=== PATIENT | female | born 1970 | race Caucasian/White ===

== ENCOUNTER 2021-05-30 06:52 | Emergency (ER) | payer OTHER, SELFPAY ==
[2021-05-30 07:08] VITALS: BP 165/100; PULSE 71; RESP 18; TEMP 36.8; O2SAT 97; BMI 27.4
--- NOTE | 2021-05-30 07:12 | ED_ITS ---
HPI - Chest Pain General: Chief Complaint: Extremity Problem,Nontraumatic Stated Complaint: states having heart attack//states same 3.5y ago Time Seen by Provider: 05/30/21 06:54 History of Present Illness: HPI narrative: Ms. Mejia is a 51-year-old lady with complex past medical history who presents the emergency department due to chest discomfort concerning for a similar episode to prior RI approximately 3.5 years ago. She reports pain that woke her up at about 4 AM. She endorses aching and occasionally sharp pain that is primarily in the right anterior chest and radiates down the right arm. She has mild associated nausea but no other typical cardiac chest pain symptoms including specifically denying diaphoresis, lightheadedness, shortness of breath. It does not appear that there is an exertional component. She does not typically have this pain. She has a surgical history of Benson-en-Y procedure and describes buildup of scar tissue which led to perhaps an type II NSTEMI however the exact history of RI is unclear. She reports she had a cath procedure with only 50% stenosis with no intervention performed at that time. She is not on anticoagulation. Overall the intensity of her symptoms was moderate to severe, the course is mildly imp roved. No other changes in health, infectious symptoms, exacerbating, or alleviating factors identified. She does have hypertension, hyperlipidemia, positive family history, and is a tobacco smoker. Review of Systems General: Reports: 10 or more systems reviewed and unremarkable except in HPI and below Narrative: CONSTITUTIONAL: denies fever, fatigue, weakness EYES - denies pain, denies loss of vision EARS - denies ear issues. NOSE - denies congestion or rhinorrhea. THROAT - denies sore throat or difficulty swallowing. CARDIOVASCULAR -see HPI RESPIRATORY - denies shortness of breath and cough GASTROINTESTINAL -see HPI GENITOURINARY - denies dysuria or urinary frequency MUSCULOSKELETAL- denies deformity or pain SKIN - denies rashes or new changed skin lesions NEUROLOGIC - denies focal weakness or sensory changes HEMATOLOGIC/LYMPHATIC - denies easy bruising or lymphadenopathy. Physical Exam Narrative: EXAM NARRATIVE: GENERAL/CONSTITUTIONAL - well-appearing. No acute distress. Eyes - PERRL, no conjunctival injection ENMT - Atraumatic external nose and ears. Moist mucous membranes NECK - supple. trachea midline CARDIOVASCULAR - regular rate and rhythm. Peripheral pulses 2+ and equal RESPIRATORY -clear to auscultation bilaterally. No retractions or accessory muscle use. ABDOMEN/GI - Nontender/Nondistended. No tenderness to percussion or evidence of peritonitis MSK - Extremities without obvious deformity or tenderness to palpation SKIN - Warm, Dry NEURO - alert and appropriately oriented. strength and sensation intact. Moves all extremities equally. PSYCH - Appropriate mood and affect Course ED course: - Patient was seen and evaluated by me at bedside - Patient placed on cardiac monitors, IV access obtained - Initial evaluation notable for no acute distress, nontoxic appearance. Chest pain not reproducible by palpation or deep inspiration on exam - Labs notable for no significant hematologic or metabolic abnormality. Troponin negative. - Imaging notable for no acute abnormality to explain patient's symptoms - Upon serial reexamination after treatment the patient was minimally improved - Based on patient history, evaluation, labs, and imaging as interpreted the most likely cause of the patient's condition is chest pain of unclear etiology -I discussed the results of ED evaluation with the patient. I explained recommendation for admission for inpatient stress testing given clinical history. I did receive the patient's cardiac cath report which showed LAD mid vessel stable appearing lesion that the patient described. I explained heart score methodology and risk stratification including risk of major adverse cardiac events. The patient is moderate risk however I explained that the risk is likely at the highest and if not higher given the patient's known CAD. Patient verbalized understanding and all questions were answered however she declined admission at this time. The patient exhibited logical and goal oriented thought process and is competent to make her own decisions regarding healthcare. - I discussed followup plan, and return precautions. The patient verbalized understanding and felt safe for discharge. Order placed for outpatient follow- up set up from case management. - Patient discharged in satisfactory condition. Vital Signs: Vital signs: Vital Signs Temperature 98.3 F 05/30/21 07:08 Pulse Rate 50 L 05/30/21 11:42 Respiratory Rate 12 05/30/21 11:42 Blood Pressure 153/83 05/30/21 11:42 Pulse Oximetry 93 05/30/21 11:42 MDM - Chest Pain Medical Records: Attestation: I reviewed the patient's medical records. Lab Data: Attestation: I reviewed the patient's lab results. Labs: Lab Results 05/30/21 05/30/21 05/30/21 Range/Units 07:44 07:44 07:44 WBC Cancelled Corrected WBC Cancelled RBC Cancelled Hgb Cancelled Hct Cancelled MCV Cancelled MCH Cancelled MCHC Cancelled RDW Cancelled Plt Count Cancelled MPV Cancelled Gran % Cancelled Neut % (Auto) Cancelled Lymph % (Auto) Cancelled Stanton % (Auto) Cancelled Eos % (Auto) Cancelled Baso % (Auto) Cancelled Neut # (Auto) Cancelled Lymph # (Auto) Cancelled Stanton # (Auto) Cancelled Eos # (Auto) Cancelled Baso # (Auto) Cancelled Absolute Gran (aut o) Cancelled Nucleated RBC % (a uto) Cancelled Nucleated RBCs # Cancelled Sodium Cancelled Potassium Cancelled Chloride Cancelled Carbon Dioxide Cancelled Anion Gap Cancelled BUN Cancelled Creatinine Cancelled GFR Calculation Cancelled Glucose Cancelled Calculated Osmolal ity Cancelled Calcium Cancelled Total Bilirubin Cancelled AST Cancelled ALT Cancelled Alkaline Phosphata se Cancelled Troponin T Baselin e Cancelled Troponin T 120 Min pilot point (0-10) ng/L Delta Troponin T (0-10) ABS# NT-Pro-B Natriuret Pep Cancelled Total Protein Cancelled Albumin Cancelled Globulin Cancelled Lipase Cancelled 05/30/21 05/30/21 05/30/21 Range/Units 08:07 08:07 08:07 WBC 7.7 Corrected WBC RBC 4.76 Hgb 14.3 Hct 43.2 MCV 90.8 MCH 30.0 MCHC 33.1 RDW 14.1 Plt Count 264 MPV 9.0 Gran % Neut % (Auto) 64.5 Lymph % (Auto) 26.6 Stanton % (Auto) 5.2 Eos % (Auto) 2.6 Baso % (Auto) 0.8 Neut # (Auto) 4.94 Lymph # (Auto) 2.0 Stanton # (Auto) 0.4 Eos # (Auto) 0.2 Baso # (Auto) 0.1 Absolute Gran (aut o) Nucleated RBC % (a uto) 0 Nucleated RBCs # 0.0 Sodium 138 Potassium 4.0 Chloride 104 Carbon Dioxide 24 Anion Gap 14.0 BUN 9 Creatinine 0.6 GFR Calculation 105.0 Glucose 89 Calculated Osmolal ity 284 L Calcium 8.5 Total Bilirubin 0.5 AST 19 ALT 19 Alkaline Phosphata se 107 H Troponin T Baselin e 6 Troponin T 120 Min pilot point (0-10) ng/L Delta Troponin T (0-10) ABS# NT-Pro-B Natriuret Pep 185 H Total Protein 6.2 L Albumin 3.7 Globulin 2.5 Lipase 13 05/30/21 Range/Units 10:05 WBC Corrected WBC RBC Hgb Hct MCV MCH MCHC RDW Plt Count MPV Gran % Neut % (Auto) Lymph % (Auto) Stanton % (Auto) Eos % (Auto) Baso % (Auto) Neut # (Auto) Lymph # (Auto) Stanton # (Auto) Eos # (Auto) Baso # (Auto) Absolute Gran (aut o) Nucleated RBC % (a uto) Nucleated RBCs # Sodium Potassium Chloride Carbon Dioxide Anion Gap BUN Creatinine GFR Calculation Glucose Calculated Osmolal ity Calcium Total Bilirubin AST ALT Alkaline Phosphata se Troponin T Baselin e Troponin T 120 Min pilot point 6.00 (0-10) ng/L Delta Troponin T 0 (0-10) ABS# NT-Pro-B Natriuret Pep Total Protein Albumin Globulin Lipase EKG Data^: EKG 1: Attestation: I personally reviewed and interpreted this EKG as follows: EKG interpretation date: 05/30/21 EKG interpretation time: 07:07 Interpretation: Twelve-lead EKG shows a regular sinus rhythm at a rate of 68. ND interval 148, QRS duration 93, QTc 430. Normal axis. Interpretation: Sinus rhythm. Nonspecific ST segment abnormalities. EKG 2: Attestation: I personally reviewed and interpreted this EKG as follows: EKG interpretation date: 05/30/21 EKG interpretation time: 10:15 Interpretation: Twelve-lead EKG shows a regular sinus rhythm at a rate of 47. ND interval 149, QRS duration 89, QTc 441. Normal axis. Interpretation: Sinus rhythm, bradycardia. Nonspecific ST segment abnormalities. Discharge Plan Discharge Patient Disposition: Home Clinical Impression: Chest pain Condition: Stable Prescriptions: No Action atorvastatin 80 mg tablet 80 mg PO DAILY RF: 0 sucralfate 1 gram tablet 1 g PO QID RF: 0 omeprazole 40 mg capsule,delayed release(DR/EC) 40 mg PO BID RF: 0 Aspir-81 81 mg Tablet,Delayed Release (Dr/Ec) 81 mg PO DAILY RF: 0 cyanocobalamin (vitamin B-12) 1,000 mcg/mL solution 1,000 mcg SUBCUT Q14D RF: 0 metoprolol tartrate 25 mg tablet 25 mg PO BID RF: 0 Discharge Orders: Discharge ED (Routine); Ordered 05/30/21 Ordered By: Kosta Zelaya Referrals: Karla Shah, BODY MAN-C [Primary Care Provider] - Discharge Diet: Usual diet Discharge Activity: Resume usual activity Patient Instructions: Chest Pain (ED) Activity Restrictions/Additional Instructions: Thank you for visiting the emergency department. You were seen and evaluated for chest pain. As discussed, based on previous cardiac cath report, this could be cardiac in nature and you need further evaluation. [facility]. Please follow-up with your primary care provider. Please follow-up with cardiology. Please return to the emergency department for anything that you are concerned about and feel needs emergency department evaluation. Coding Level of Care Code ED Value Advisor for César Box
--- NOTE | 2021-05-30 07:21 | XR_ITS ---
WS: [id number] XR chest 1V portable [id number] REASON FOR EXAM: chest pain FINDINGS: The heart and mediastinum are within normal limits. No active pulmonary parenchymal or pleural disease is noted. The bony thorax is intact. XR/XR chest 1V portable [id number] IMPRESSION: No significant abnormality.
[2021-05-30 07:48] VITALS: BP 153/102; PULSE 61; RESP 14; O2SAT 96
[2021-05-30 08:02] VITALS: RESP 18; O2SAT 97
[2021-05-30] MEDS: aspirin 81 mg Chew Tablet 324 MG PO (08:02)
[2021-05-30] MEDS: morphine 4 mg/mL SDV 1 mL IVP (08:02)
[2021-05-30 08:14] LABS: Basophils # 0.1 10^3/uL (0.0-0.1); Basophils % 0.8 %; Eosinophils # 0.2 10^3/uL (0.0-0.8); Eosinophils % 2.6 %; Hematocrit 43.2 % (37.0-47.0); Hemoglobin 14.3 g/dL (11.5-15.3); Lymphocytes % 26.6 %; Mean Corpuscular HGB Conc 33.1 g/dL (30.0-36.0); Mean Corpuscular Volume 90.8 fl (81-99); Monocytes # 0.4 10^3/uL (0.2-0.9); Monocytes % 5.2 %; Neutrophils # 4.94 10^3/uL (1.8-7.7); Neutrophils % 64.5 %; Nucleated Red Blood Cells % 0 %; Platelet Count 264 10^3/cmm (130-400); Red Blood Count 4.76 10^6/uL (4.1-5.3); Red Cell Distribution Width 14.1 % (12.1-15.1); White Blood Count 7.7 10^3/uL (4.0-10.0)
[2021-05-30 08:35] LABS: Troponin(5th) Baseline 6 ng/L (0-10)
[2021-05-30 08:43] LABS: Alanine Aminotransferase 19 U/L (0-33); Albumin Level 3.7 g/dL (3.5-5.2); Alkaline Phosphatase 107 IU/L (35-105); Aspartate Amino Transferase 19 U/L (0-32); Blood Urea Nitrogen 9 mg/dL (6-20); Calcium 8.5 mg/dL (8.5-10.5); Carbon Dioxide 24 mmol/L (22-29); Chloride 104 mmol/L (98-107); Globulin 2.5 g/dL (1.3-4.6); Glucose 89 mg/dL (65-115); Lipase 13 U/L (13-60); NT Pro B Type Natriuretic Pept 185 pg/mL (0-125); Osmolality Calculated 284 mOsm/kg (285-295); Sodium 138 mmol/L (136-145); Total Bilirubin 0.5 mg/dL (0.15-1.2); Total Protein 6.2 g/dL (6.6-8.7)
[2021-05-30 08:57] VITALS: BP 138/81; PULSE 62; RESP 13; O2SAT 94
--- NOTE | 2021-05-30 09:21 | ECG_ITS ---
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 Measurements Intervals Delta Rate: 47 P: 65 HI: 149 QRS: 74 QRSD: 89 T: 52 QT: 495 QTc: 441 Interpretive Statements SINUS BRADYCARDIA No previous ECG available for comparison Electronically Signed On 05-31-2021 19:20:09 CDT by Christine Horn M.D. [email or web address]
[2021-05-30 10:11] VITALS: BP 135/81; PULSE 47; RESP 13; O2SAT 95
[2021-05-30 10:34] LABS: Troponin 5 2HR Delta 0 ABS# (0-10)
[2021-05-30 11:42] VITALS: BP 153/83; PULSE 50; RESP 12; O2SAT 93
--- NOTE | 2021-05-30 14:02 | DCPLANNER ---
Addendum entered by Zohra Gale 10/03/21 16:31: Patient had a follow up appointment scheduled with [facility] - patient did not attend appointment. Original Note: distribution sales manager had message to schedule a follow up appointment for patient with [facility], and a out patient stress test, and echo cardiogram. distribution sales manager faxed signed order to centralized scheduling. After speaking with physician, he stated that he wanted patient to follow up with [facility], and if oakes machine operator feels patient would benefit from an outpatient stress test and echo cardiogram then the oakes machine operator can order the necessary testing. distribution sales manager called [facility], spoke with Palak, gave clinic patients information. A follow up appointment was scheduled for Saturday, June 12, 2021 at 2:[address] Tsang. distribution sales manager called patients , gave him the appointment information.
== END 2021-05-30 11:43 | disposition home or self-care (01) ==
PROVIDERS: Emergency Provider Emergency Medicine; PCP Nurse Practitioner Family
DX: R07.9 Chest pain, unspecified (principal); Z79.82 Long term (current) use of aspirin
CPT/HCPCS: 36415; 71045; 80053; 83690; 83880; 84484; 85025; 93005; 96374; 99284; J2270

== ENCOUNTER 2021-06-18 11:54 | Outpatient (CLI) | payer OTHER, SELFPAY ==
--- NOTE | 2021-06-18 12:09 | MR_ITS ---
WS: [id number] MRI CERVICAL SPINE NONCONTRAST HISTORY: CERVICAL SPONDYLOSIS COMPARISON: None available. Technique: Multiplanar, multisequence noncontrast imaging of the cervical spine. Straightening of the normal cervical lordosis. Slight reversal of curvature centered at C5-6. Signal within the cervical cord is normal. Visualized posterior fossa is unremarkable. Craniocervical junction, C1 and C2 relationship, odontoid process and soft tissues are normal. C2-C3: Normal. C3-C4: Normal. C4-C5: Very mild annular disc bulging. No significant stenosis. C5-C6: Moderate disc space narrowing at C5-6. Diffuse osteophytic ridging with disc and osteophyte en croachment upon the ventral thecal sac. There is a larger disc osteophyte complex in the proximal LEF T foramen causing slightly more mass effect upon the exiting nerve roots. Effacement of ventral CSF b ut no significant cord deformity. Mild central and bilateral foraminal stenosis. C6-C7: Diffuse osteophytic ridging and annular disc bulging. Larger disc osteophyte complex extends i nto the LEFT foramen. There is significant posterior displacement of the nerve roots. Mild central st enosis. Moderate RIGHT foraminal stenosis. Severe LEFT foraminal stenosis due to the disc and osteoph yte disease. C7-T1: Normal. Paraspinal soft tissue are normal. MR/MR cervical spin wo con* [id number] IMPRESSION: 1. Advanced degenerative disc disease at C5-6 and C6-7 with disc bulging and l arge osteophytes. 2. Severe LEFT foraminal stenosis at C6-7 due to large disc osteophyte complex . Mild central and moderate RIGHT foraminal stenosis at C6-7. 3. Mild central and bilateral foraminal stenosis at C5-6 due to disc and osteo phyte disease.
== END 2021-06-18 11:55 | disposition home or self-care (01) ==
PROVIDERS: PCP Nurse Practitioner Family; Visit Provider Registered Nurse
DX: M47.812 Spondylosis without myelopathy or radiculopathy, cervical region (principal); M50.322 Other cervical disc degeneration at C5-C6 level; M50.20 Other cervical disc displacement, unspecified cervical region; M25.78 Osteophyte, vertebrae; M48.02 Spinal stenosis, cervical region
CPT/HCPCS: 72141

== ENCOUNTER → 2021-07-02 14:13 | Outpatient (BNVA) | payer OTHER, SELFPAY | PROVIDERS: PCP Nurse Practitioner Family; Referring Provider Registered Nurse; Visit Provider Physician Assistant | DX: M54.2 Cervicalgia (principal) | CPT/HCPCS: 72050 ==

== ENCOUNTER → 2021-08-22 08:39 | Outpatient (BNVA) | payer OTHER, SELFPAY | PROVIDERS: PCP Nurse Practitioner Family; Referring Provider Physician Assistant; Visit Provider Anesthesiology Pain Medicine | DX: M47.22 Other spondylosis with radiculopathy, cervical region (principal); M50.30 Other cervical disc degeneration, unspecified cervical region; R51.9 Headache, unspecified; M79.604 Pain in right leg | CPT/HCPCS: 99205 ==

== ENCOUNTER 2022-02-01 12:09 | Emergency (ER) | payer OTHER, SELFPAY ==
[2022-02-01 12:16] VITALS: BP 137/84; PULSE 85; RESP 18; TEMP 37.1; O2SAT 98
--- NOTE | 2022-02-01 12:25 | CTR_ITS ---
PROCEDURE INFORMATION: Exam: CT Abdomen And Pelvis With Contrast Exam date and time: 02/01/2022 1:37 PM Age: 51 years old Clinical indication: Abdominal pain; Localized; Right lower quadrant (rlq); Prior surgery; Surgery date: 6+ months; Surgery type: Gb, gastric bypass; Patient HX: C/O rlq abd pain TECHNIQUE: Imaging protocol: Computed tomography of the abdomen and pelvis with contrast. Radiation optimization: All CT scans at this facility use at least one of these dose optimization techniques: automated exposure control; mA and/or kV adjustment per patient size (includes targeted exams where dose is matched to clinical indication); or iterative reconstruction. Contrast material: OMNI 300; Contrast volume: 50 ml; Contrast route: INTRAVENOUS (IV); COMPARISON: CR XR chest 1V portable [id number] 05/30/2021 7:35 AM RADIATION DOSE METRICS: Total DLP (mGy-cm): 1100.26 FINDINGS: Liver: Normal. No mass. Gallbladder and bile ducts: Cholecystectomy. No ductal dilation. Pancreas: Normal. No ductal dilation. Spleen: Normal. No splenomegaly. Adrenal glands: 1.3 cm left adrenal nodule series 2 image 20. Right adrenal gland is unremarkable. Kidneys and ureters: Normal. No hydronephrosis. Stomach and bowel: Sequela of gastric bypass. No obstruction. No mucosal thickening. Appendix: No evidence of appendicitis. Intraperitoneal space: Unremarkable. No free air. No significant fluid collection. Vasculature: Unremarkable. No abdominal aortic aneurysm. Lymph nodes: Unremarkable. No enlarged lymph nodes. Urinary bladder: Unremarkable as visualized. Reproductive: Unremarkable as visualized. Bones/joints: No acute fracture. Grade 1 anterolisthesis of L4 on L5. Soft tissues: Unremarkable. CT/CT abdomen pelvis w con* [id number] IMPRESSION: 1. No acute findings. 2. 1.3 cm left adrenal nodule.
--- NOTE | 2022-02-01 12:26 | ED_ITS ---
HPI - Abdominal Pain General: Chief Complaint: Abdominal Pain Stated Complaint: ABD pain, history of ulcers Time Seen by Provider: 02/01/22 12:21 Source: patient Mode of arrival: ambulatory Limitations: no limitations History of Present Illness: 51-year-old female states that she has been having right lower quadrant abdominal pain since this morning. She states that sharp pain she rates an 8 out of 10. States is worse with movement improved with rest. No vomiting no diarrhea denies any fevers. She did have a gastric bypass and a cholecystectomy 20 years ago she still has her appendix. Associated Symptoms: Denies chills, dysuria and fever(s) Review of Systems Const: Denies: fever(s), chills, body aches or change in appetite Eyes: Denies: blurry vision or eye discomfort ENMT: Denies: throat pain or dental pain Card: Denies: chest pain Resp: Denies: dyspnea GI: Reports: abdominal pain : Denies: dysuria Musc: Denies: neck pain or back pain Skin/Breast: Denies: rash Neuro: Denies: headache(s) Psych: Denies: depression Heron/Lymph: Denies: easy bruising All/Imm: Denies: urticaria PFSH ED PFSH: Family History Denies family history of Anesthesia complication Bleeding disorder Social History Smoking and tobacco status: never smoked Alcohol intake: never Lives independently: Yes Household members: spouse History of recent travel: No Physical Exam Const: COMMON NORMALS: no acute distress, patient oriented x3 and healthy appearing HENMT: COMMON NORMALS: normocephalic and atraumatic HEAD & SCALP: normocephalic and atraumatic Eye: COMMON NORMALS: Equal, round and reactive pupils present and EOMs intact bilaterally PUPIL: Yes Equal, round and reactive pupils present Neck/C-Spine: COMMON NORMALS: full ROM and supple Chest: COMMONS NORMALS: normal inspection of the chest and normal palpation of entire chest wall Resp: COMMON NORMALS: normal respiratory effort, No retractions, No use of accessory muscles and clear to auscultation bilaterally AUSCULTATION: clear to auscultation bilaterally Cardio: COMMON NORMALS: regular rate, regular rhythm and No murmurs present (Cardio) RATE: regular rate RHYTHM: regular rhythm GI: COMMON NORMALS: Normal to inspection, nondistended, normoactive bowel sounds present, Soft to palpation and no masses PALPATION: Yes Soft to palpation and Yes Tenderness to palpation present (GI) Details: RLQ Extremity: COMMON NORMALS: normal to inspection and full ROM Neuro: COMMON NORMALS: patient oriented x3, moves all extremities and no focal motor deficits Psych: COMMON NORMALS: mental status grossly normal, Normal thought process present and cooperative THOUGHT PROCESS: Normal thought process present Skin: COMMON NORMALS: no rashes or lesions noted and no wounds GENERAL SKIN EXAM: no rashes or lesions noted Course Vital Signs: Vital signs: Vital Signs Temperature 98.7 F 02/01/22 12:16 Pulse Rate 85 02/01/22 12:16 Respiratory Rate 18 02/01/22 12:55 Blood Pressure 137/84 02/01/22 12:16 Pulse Oximetry 98 02/01/22 12:16 MDM - Abdominal Pain Medical Decision Making Patient presents with abdominal pain she feels improved here exam at discharge benign blood work and CT scan are normal get her surgery follow-up she is to return if worsening she understands agrees to plan. Lab Data : 02/01/22 13:32 02/01/22 12:57 Labs/Radiology: Radiology Impressions Abdomen/Pelvis CT 02/01/22 12:25 IMPRESSION: 1. No acute findings. 2. 1.3 cm left adrenal nodule. Laboratory Results WBC 8.5 10^3/uL (4.0-10.0) 02/01/22 13:32 Corrected WBC Cancelled 02/01/22 12:57 RBC 4.65 10^6/uL (4.1-5.3) 02/01/22 13:32 Hgb 14.1 g/dL (11.5-15.3) 02/01/22 13:32 Hct 43.2 % (37.0-47.0) 02/01/22 13:32 MCV 92.9 fl (81-99) 02/01/22 13:32 MCH 30.3 pg (28.0-34.0) 02/01/22 13:32 MCHC 32.6 g/dL (30.0-36.0) 02/01/22 13:32 RDW 14.6 % (12.1-15.1) 02/01/22 13:32 Plt Count 258 10^3/cmm (130-400) 02/01/22 13:32 MPV 9.0 fL (7.4-10.4) 02/01/22 13:32 Gran % Cancelled 02/01/22 12:57 Neut % (Auto) 89.7 % 02/01/22 13:32 Lymph % (Auto) 4.3 % 02/01/22 13:32 Sully % (Auto) 4.9 % 02/01/22 13:32 Eos % (Auto) 0.2 % 02/01/22 13:32 Baso % (Auto) 0.4 % 02/01/22 13:32 Neut # (Auto) 7.59 10^3/uL (1.8-7.7) 02/01/22 13:32 Lymph # (Auto) 0.4 10^3/uL (0.8-4.8) L 02/01/22 13:32 Sully # (Auto) 0.4 10^3/uL (0.2-0.9) 02/01/22 13:32 Eos # (Auto) 0.0 10^3/uL (0.0-0.8) 02/01/22 13:32 Baso # (Auto) 0.0 10^3/uL (0.0-0.1) 02/01/22 13:32 Absolute Gran (auto) Cancelled 02/01/22 12:57 Nucleated RBC % (auto) 0 % 02/01/22 13:32 Nucleated RBCs # 0.0 /100WBC 02/01/22 13:32 Sodium 136 mmol/L (136-145) 02/01/22 12:57 Potassium 4.2 mmol/L (3.5-5.1) 02/01/22 12:57 Chloride 102 mmol/L (98-107) 02/01/22 12:57 Carbon Dioxide 23 mmol/L (22-29) 02/01/22 12:57 Anion Gap 15.2 (5-19) 02/01/22 12:57 BUN 9 mg/dL (6-20) 02/01/22 12:57 Creatinine 0.7 mg/dL (0.5-0.9) 02/01/22 12:57 GFR Calculation 87.9 mL/min (90-130) L 02/01/22 12:57 Glucose 100 mg/dL (65-115) 02/01/22 12:57 Calculated Osmolality 281 mOsm/kg (285-295) L 02/01/22 12:57 Calcium 8.5 mg/dL (8.5-10.5) 02/01/22 12:57 Total Bilirubin 0.5 mg/dL (0.15-1.2) 02/01/22 12:57 AST 16 U/L (0-32) 02/01/22 12:57 ALT 12 U/L (0-33) 02/01/22 12:57 Alkaline Phosphatase 99 IU/L (35-105) 02/01/22 12:57 Total Protein 6.6 g/dL (6.6-8.7) 02/01/22 12:57 Albumin 4.2 g/dL (3.5-5.2) 02/01/22 12:57 Globulin 2.4 g/dL (1.3-4.6) 02/01/22 12:57 Lipase 10 U/L (13-60) L 02/01/22 12:57 Urine Color Yellow (Yellow) 02/01/22 13:32 Urine Appearance Clear (CLEAR) 02/01/22 13:32 Urine pH 5 (5-7) 02/01/22 13:32 Ur Specific [place] 1.015 (1.005-1.030) 02/01/22 13:32 Urine Protein Neg (Negative) 02/01/22 13:32 Urine Glucose (UA) Norm (Normal) 02/01/22 13:32 Urine Ketones 1+ (Negative) H 02/01/22 13:32 Urine Blood 2+ (Negative) H 02/01/22 13:32 Urine Nitrate Negative (Negative) 02/01/22 13:32 Urine Bilirubin Neg (Negative) 02/01/22 13:32 Urine Urobilinogen Norm mg/dL (Negative) 02/01/22 13:32 Ur Leukocyte Esterase Negative (Negative) 02/01/22 13:32 Urine RBC 10-15 /hpf (0-2) H 02/01/22 13:32 Urine WBC Rare /hpf (0-5) 02/01/22 13:32 Ur Squamous Epith Cells 0-4 /hpf (0-5) H 02/01/22 13:32 Amorphous Sediment Not Reportable 02/01/22 13:32 Urine Bacteria Trace /hpf (NONE) 02/01/22 13:32 Urine Mucus 1+ /hpf 02/01/22 13:32 Discharge Plan Discharge Patient Disposition: Home Clinical Impression: Abdominal pain Condition: Stable Prescriptions: New ondansetron 4 mg tablet,disintegrating 4 mg PO Q6H PRN (Reason: nausea and vomiting) Qty: 14 0RF No Action cyclobenzaprine 10 mg tablet 10 mg PO TID 0RF atorvastatin 80 mg tablet 80 mg PO DAILY 0RF sucralfate 1 gram tablet 1 g PO QID 0RF omeprazole 40 mg capsule,delayed release(DR/EC) 40 mg PO BID 0RF Aspir-81 81 mg Tablet,Delayed Release (Dr/Ec) 81 mg PO DAILY 0RF cyanocobalamin (vitamin B-12) 1,000 mcg/mL solution 1,000 mcg SUBCUT Q14D 0RF Rx Instructions: TAKE ON THURSDAY metoprolol tartrate 25 mg tablet 25 mg PO BID 0RF Discharge Orders: Discharge ED (Routine); Ordered 02/01/22 Ordered By: Huber Richter Referrals: Duy Baker MD [Physician] - 1-3 days Karla Shah FNP-C [Primary Care Provider] - Discharge Diet: Advance as tolerated Discharge Activity: Resume usual activity Patient Instructions: Abdominal Pain (ED) Coding Level of Care Code ED Senior Litigation Paralegal for Chg Fwd Exam Comprehensive
[2022-02-01] MEDS: sodium chloride 0.9% 1,000 ML 999 ML IV (12:53)
[2022-02-01 12:55] VITALS: RESP 18
[2022-02-01] MEDS: morphine 4 mg/mL SDV 1 mL IVP (12:55)
[2022-02-01] MEDS: ondansetron 2 mg/ML SDV 2 mL 4 MG IVP (12:55)
[2022-02-01 13:26] LABS: Alanine Aminotransferase 12 U/L (0-33); Albumin Level 4.2 g/dL (3.5-5.2); Alkaline Phosphatase 99 IU/L (35-105); Aspartate Amino Transferase 16 U/L (0-32); Blood Urea Nitrogen 9 mg/dL (6-20); Calcium 8.5 mg/dL (8.5-10.5); Carbon Dioxide 23 mmol/L (22-29); Chloride 102 mmol/L (98-107); Globulin 2.4 g/dL (1.3-4.6); Glomerular Filtration Rate 87.9 mL/min (90-130); Glucose 100 mg/dL (65-115); Lipase 10 U/L (13-60); Osmolality Calculated 281 mOsm/kg (285-295); Sodium 136 mmol/L (136-145); Total Bilirubin 0.5 mg/dL (0.15-1.2); Total Protein 6.6 g/dL (6.6-8.7)
[2022-02-01 13:35] LABS: Basophils % 0.4 %; Eosinophils % 0.2 %; Hematocrit 43.2 % (37.0-47.0); Hemoglobin 14.1 g/dL (11.5-15.3); Lymphocytes # 0.4 10^3/uL (0.8-4.8); Lymphocytes % 4.3 %; Mean Corpuscular HGB Conc 32.6 g/dL (30.0-36.0); Mean Corpuscular Hemoglobin 30.3 pg (28.0-34.0); Mean Corpuscular Volume 92.9 fl (81-99); Monocytes # 0.4 10^3/uL (0.2-0.9); Monocytes % 4.9 %; Neutrophils # 7.59 10^3/uL (1.8-7.7); Neutrophils % 89.7 %; Nucleated Red Blood Cells % 0 %; Platelet Count 258 10^3/cmm (130-400); Red Blood Count 4.65 10^6/uL (4.1-5.3); Red Cell Distribution Width 14.6 % (12.1-15.1); White Blood Count 8.5 10^3/uL (4.0-10.0)
[2022-02-01] MEDS: iohexol 300 mg/mL 50 mL Btl IV (13:37)
[2022-02-01 13:42] LABS: Anion Gap 15.2 (5-19); Potassium 4.2 mmol/L (3.5-5.1)
[2022-02-01 14:35] LABS: Urine Appearance Clear (CLEAR); Urine Color Yellow (Yellow)
[2022-02-01 14:36] LABS: Add Urine Microscopic? YES; Bilirubin Urine Neg (Negative); Blood Urine 2+ (Negative); Glucose Urine UA Norm (Normal); Ketones Urine 1+ (Negative); Leukocyte Esterase Urine Negative (Negative); Nitrate Urine Negative (Negative); Protein Urine Neg (Negative); Specific Gravity, Urine 1.015 (1.005-1.030); Urobilinogen Urine Norm (Negative); pH Urine 5 (5-7)
[2022-02-01 14:37] LABS: Add Urine Culture? Yes; Bacteria Urine TRACE /hpf; Mucus Urine 1+ /hpf; Squamous Epithelial Cell Urine 0-4 /hpf (0-5); WBC Urine RARE /hpf (0-5)
[2022-02-01 15:53] VITALS: BP 165/109; PULSE 77; RESP 16; O2SAT 94
--- NOTE | 2022-02-03 15:23 | DCPLANNER ---
Addendum entered by Zohra Gale 05/06/22 14:01: Patient had a follow up appointment scheduled for 02.13.22 with general surgery - patient did attend appointment. Addendum entered by Zohra Gale 02/07/22 16:00: Patient has a follow up appointment scheduled for February at 1:[address] Baker at general surgery. Clinic will call patient with appointment information. Original Note: security services manager had message to schedule a followup appointment for patient with general surgery. security services manager sent patients information to the front office staff at general surgery. Patients information will be printed and reviewed. Clinic will call patient with appointment information.
== END 2022-02-01 15:55 | disposition home or self-care (01) ==
PROVIDERS: Emergency Provider Emergency Medicine; PCP Nurse Practitioner Family
DX: R10.31 Right lower quadrant pain (principal)
CPT/HCPCS: 74177; 80053; 81001; 83690; 85025; 87086; 96361; 96374; 96375; 99284; J2270; J2405; J7030; Q9967

== ENCOUNTER → 2022-02-13 14:07 | Outpatient (BNVA) | payer OTHER, SELFPAY | PROVIDERS: PCP Nurse Practitioner Family; Visit Provider Surgery | DX: R10.9 Unspecified abdominal pain (principal); Z98.84 Bariatric surgery status; Z98.890 Other specified postprocedural states | CPT/HCPCS: 36415; 80053; 80061; 82310; 82607; 82652; 82728; 82746; 83540; 83550; 83735; 83970; 84425; 84443; 84630; 85025 ==

== ENCOUNTER 2022-03-11 10:26 | Outpatient (CLI) | payer OTHER, SELFPAY ==
--- NOTE | 2022-03-11 10:32 | FL_ITS ---
WS: [id number] FL upper GI w air* [id number] REASON FOR EXAM: abdominal pain, history gastric surgery FLUOROSCOPY TIME: 2min [id number] # OF SPOT FILMS: 15 FINDINGS: The upper GI tract was evaluated from the oropharynx into the small bowel of the gastric bypass. Michelle ent was evaluated in the upright and prone TEJADA positions. No significant abnormality was identified in the cervical esophagus. The thoracic esophagus demonstrated normal peristalsis. There was a moderate sliding hiatal hernia wi thout obstruction or significant reflux. The anastomosis at the gastric pouch/small bowel was widely patent with no evidence of edema or ulcer ation. Barium passed preferentially into the distal small bowel rather than filling the blind loop. FL/FL upper GI w air* [id number] IMPRESSION: Small hiatal hernia. No findings for anastomotic ulceration or inflammation.
== END 2022-03-11 10:27 | disposition home or self-care (01) ==
LOC: RAD 10:28
PROVIDERS: PCP Nurse Practitioner Family; Visit Provider Surgery
DX: R10.9 Unspecified abdominal pain (principal); Z98.890 Other specified postprocedural states
CPT/HCPCS: 74246

== ENCOUNTER 2022-04-30 13:02 | Outpatient (CLI) | payer OTHER, SELFPAY ==
--- NOTE | 2022-04-30 13:11 | MM_ITS ---
WS: [id number] BILATERAL 3D TOMOSYNTHESIS DIGITAL SCREENING MAMMOGRAPHY WITH CAD CLINICAL INFORMATION: SCREENING HISTORY: Screening mammogram. No current complaints. COMPARISON: April 11, 2021 TECHNIQUE: Bilateral CC and MLO views. FINDINGS: The breasts are composed of heterogeneous fibroglandular density tissue, which can limit the detectio n of small underlying mass lesions. A few tiny incidental punctate calcifications LEFT breast. No atilio picious mass, asymmetry, calcifications, or architectural distortion. No evidence of malignancy. MM/[place] [id number] IMPRESSION: BI-RADS: 2-Benign FOLLOW UP: 1 Year Follow-up Recommend return to annual screening mammography.
== END 2022-04-30 13:03 | disposition home or self-care (01) ==
LOC: RAD 13:04
PROVIDERS: PCP Registered Nurse; Visit Provider Registered Nurse
DX: Z12.31 Encounter for screening mammogram for malignant neoplasm of breast (principal)
CPT/HCPCS: 77063; 77067

== ENCOUNTER 2022-09-19 15:10 | Emergency (ER) | payer OTHER, SELFPAY ==
[2022-09-19 15:21] VITALS: BP 129/85; PULSE 98; RESP 16; TEMP 36.7; O2SAT 96; BMI 26.1
[2022-09-19 16:28] LABS: Urine Appearance Clear (CLEAR); Urine Color Amber (Yellow); pH Urine 7 (5-7)
[2022-09-19 16:29] LABS: Add Urine Microscopic? YES; Bilirubin Urine Neg (Negative); Blood Urine 2+ (Negative); Glucose Urine UA Norm (Normal); Ketones Urine 1+ (Negative); Leukocyte Esterase Urine 1+ (Negative); Nitrate Urine Negative (Negative); Protein Urine Trace (Negative); Urobilinogen Urine 1 mg/dL (Negative)
[2022-09-19 16:31] LABS: Add Urine Culture? No; Squamous Epithelial Cell Urine 15-25 /hpf (0-5)
[2022-09-19 16:45] VITALS: BP 127/84; PULSE 83; RESP 17; O2SAT 97
[2022-09-19] MEDS: HYDROcodone-acetaminophen 5-325 mg Tablet 1 TAB PO (16:46)
--- NOTE | 2022-09-19 17:08 | ED_ITS ---
Documented by User: SHAYY Hinton 09/19/22 17:19 HPI - Back Pain/Injury General: Chief Complaint: Back Pain/Injury Stated Complaint: urinary pain Time Seen by Provider: 09/19/22 15:49 History of Present Illness: Patient reports that she has right-sided flank pain. 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 She had not done anything to injure her back. She denies any fever, chills, nausea, vomiting. She states that her back hurts a little bit worse with urination but she does not have any burning with urination. She did go see her primary care provider yesterday and she had blood in her urine so t romeo went ahead and gave her Flomax and an antibiotic. She had an outpatient CT done today which was negative for any renal stones. She is having worsening pain. She denies any possibility of . She cannot take NSAIDs because she has had previous gastric bypass. Associated symptoms: Deny abdominal pain, chills, dysuria, fever(s), nausea, urinary urgency or vomiting Review of Systems Const: Denies: fever(s), chills or body aches Card: Denies: chest pain, palpitations or irregular heart rhythm Resp: Denies: dyspnea, productive cough or non-productive cough GI: Denies: abdominal pain, nausea or vomiting : Reports: flank pain; Denies: difficulty voiding, dysuria, urinary frequency, urinary urgency or urinary hesitancy Musc: Reports: back pain PFS ED PFSH: Family History Denies family history of Anesthesia complication Bleeding disorder Social History Smoking and tobacco status: current every day smoker Alcohol intake: never Lives independently: Yes Household members: spouse History of recent travel: No Physical Exam Const: COMMON NORMALS: patient oriented x3 and alert OTHER: Patient is in apparent pain. She has having a difficult time finding any position of comfort and moves continuously in the chair. She is pleasant and cooperative Neck/C-Spine: COMMON NORMALS: no JVD Resp: COMMON NORMALS: normal respiratory effort, No use of accessory muscles and clear to auscultation bilaterally AUSCULTATION: clear to auscultation bilaterally Cardio: COMMON NORMALS: no JVD, regular rate, regular rhythm, S1 normal heart sound present and S2 normal heart sound present RATE: regular rate RHYTHM: regular rhythm HEART SOUNDS: S1 normal heart sound present and S2 normal heart sound present GI: COMMON NORMALS: Normal to inspection, nondistended, normoactive bowel sounds present, Soft to palpation and non-tender PALPATION: Yes Soft to palpation : COMMON NORMALS: Yes no CVA tenderness BLADDER/KIDNEY EXAM: Yes no CVA tenderness Back/Pelvis: COMMON NORMALS: no CVA tenderness Neuro: COMMON NORMALS: patient oriented x3 SENSORIUM/ORIENTATION: Yes alert Course Vital Signs: Vital signs: Vital Signs Temperature 98.1 F 09/19/22 15:21 Pulse Rate 85 09/19/22 17:34 Respiratory Rate 16 09/19/22 17:34 Blood Pressure 141/88 09/19/22 17:34 Pulse Oximetry 96 09/19/22 17:34 Oxygen Delivery Me thod 09/19/22 16:45 MDM - Back Pain/Injury Medical Decision Making Patient positive for 2+ blood in her urine. Positive for leuks. Awaiting results from CT done today. Patient having clinic fax the CT to ER. CT results show no renal stones no acute pathology. Patient has only had 1 dose of antibiotic. I advised her that at this point I do not see any evidence of a kidney stone. I recommend that she take the antibiotic as prescribed. I offered muscle relaxer to help with the musculoskeletal spasming. She declined at this time. I recommend taking the antibiotic and making sure that she is drinking plenty of fluids. Follow-up with her primary care provider in the next 24 to 48 hours if symptoms or not improving return to the ER for new or worsening symptoms. Patient is very agreeable with plan of care denies any further needs at this time Labs Laboratory Results Urine Color Reema (Yellow) 09/19/22 15:59 Urine Appearance Clear (CLEAR) 09/19/22 15:59 Urine pH 7 (5-7) 09/19/22 15:59 Ur Specific [place] 1.010 (1.005-1.030) 09/19/22 15:59 Urine Protein Trace (Negative) 09/19/22 15:59 Urine Glucose (UA) Norm (Normal) 09/19/22 15:59 Urine Ketones 1+ (Negative) H 09/19/22 15:59 Urine Blood 2+ (Negative) H 09/19/22 15:59 Urine Nitrate Negative (Negative) 09/19/22 15:59 Urine Bilirubin Neg (Negative) 09/19/22 15:59 Urine Urobilinogen 1 mg/dL (Negative) H 09/19/22 15:59 Ur Leukocyte Esterase 1+ (Negative) H 09/19/22 15:59 Urine RBC None /hpf (0-2) 09/19/22 15:59 Urine WBC None /hpf (0-5) 09/19/22 15:59 Ur Squamous Epith Cells 15-25 /hpf (0-5) H 09/19/22 15:59 Amorphous Sediment Not Reportable 09/19/22 15:59 Urine Bacteria None /hpf (NONE) 09/19/22 15:59 Discharge Plan Discharge Patient Disposition: Home Clinical Impression: Urinary tract infection, Flank pain Condition: Stable Prescriptions: No Action cyclobenzaprine 10 mg tablet 10 mg PO TID Marijuana PO BEDTIME PRN dexamethasone sodium phosphate 4 mg/mL solution 8 mg Infiltration ONCE Qty: 2 0RF atorvastatin 80 mg tablet 80 mg PO DAILY sucralfate 1 gram tablet 1 g PO QID omeprazole 40 mg capsule,delayed release(DR/EC) 40 mg PO BID Aspir-81 81 mg Tablet,Delayed Release (Dr/Ec) 81 mg PO DAILY cyanocobalamin (vitamin B-12) 1,000 mcg/mL solution 1,000 mcg SUBCUT Q14D Rx Instructions: TAKE ON THURSDAY metoprolol tartrate 25 mg tablet 25 mg PO BID ondansetron 4 mg tablet,disintegrating 4 mg PO Q6H PRN (Reason: nausea and vomiting) Qty: 14 0RF Discharge Orders: Discharge ED (Routine); Ordered 09/19/22 Ordered By: Pat Flores Referrals: Yordan Dotson CPNP [Primary Care Provider] - Discharge Diet: Usual diet Discharge Activity: Increase activity as tolerated Patient Instructions: Flank Pain, Urinary Tract Infection in Women (ED) Activity Restrictions/Additional Instructions: Take antibiotics as already prescribed. Make sure that you are staying well- hydrated. Follow-up with primary care provider in 24 to 48 hours if symptoms are persisting. Return to the ER for new or worsening symptoms. Coding Level of Care Code ED [place] Pumper for Chg Fwd Exam Detailed Documented by User: Andrew Rhodes DO 09/20/22 08:22 HPI - Back Pain/Injury General: Chief Complaint: Back Pain/Injury Stated Complaint: urinary pain Time Seen by Provider: 09/19/22 15:49 PFSH ED PFSH: Family History Denies family history of Anesthesia complication Bleeding disorder Social History Smoking and tobacco status: current every day smoker Alcohol intake: never Lives independently: Yes Household members: spouse History of recent travel: No Course Vital Signs: Vital signs: Vital Signs Temperature 98.1 F 09/19/22 15:21 Pulse Rate 85 09/19/22 17:34 Respiratory Rate 16 09/19/22 17:34 Blood Pressure 141/88 09/19/22 17:34 Pulse Oximetry 96 09/19/22 17:34 Oxygen Delivery Me thod 09/19/22 16:45 MDM - Back Pain/Injury Medical Decision Making Patient positive for 2+ blood in her urine. Positive for leuks. Awaiting results from CT done today. Patient having clinic fax the CT to ER. CT results show no renal stones no acute pathology. Patient has only had 1 dose of a ntibiotic. I advised her that at this point I do not see any evidence of a kidney stone. I recommend that she take the antibiotic as prescribed. I offered muscle relaxer to help with the musculoskeletal spasming. She declined at this time. I recommend taking the antibiotic and making sure that she is drinking plenty of fluids. Follow-up with her primary care provider in the next 24 to 48 hours if symptoms or not improving return to the ER for new or worsening symptoms. Patient is very agreeable with plan of care denies any further needs at this time Chart reviewed and patient discussed with midlevel. Agree with assessment and plan. Labs Laboratory Results Urine Color Reema (Yellow) 09/19/22 15:59 Urine Appearance Clear (CLEAR) 09/19/22 15:59 Urine pH 7 (5-7) 09/19/22 15:59 Ur Specific [place] 1.010 (1.005-1.030) 09/19/22 15:59 Urine Protein Trace (Negative) 09/19/22 15:59 Urine Glucose (UA) Norm (Normal) 09/19/22 15:59 Urine Ketones 1+ (Negative) H 09/19/22 15:59 Urine Blood 2+ (Negative) H 09/19/22 15:59 Urine Nitrate Negative (Negative) 09/19/22 15:59 Urine Bilirubin Neg (Negative) 09/19/22 15:59 Urine Urobilinogen 1 mg/dL (Negative) H 09/19/22 15:59 Ur Leukocyte Esterase 1+ (Negative) H 09/19/22 15:59 Urine RBC None /hpf (0-2) 09/19/22 15:59 Urine WBC None /hpf (0-5) 09/19/22 15:59 Ur Squamous Epith Cells 15-25 /hpf (0-5) H 09/19/22 15:59 Amorphous Sediment Not Reportable 09/19/22 15:59 Urine Bacteria None /hpf (NONE) 09/19/22 15:59 Discharge Plan Discharge Patient Disposition: Home Clinical Impression: Urinary tract infection, Flank pain Condition: Stable Prescriptions: No Action cyclobenzaprine 10 mg tablet 10 mg PO TID Marijuana PO BEDTIME PRN dexamethasone sodium phosphate 4 mg/mL solution 8 mg Infiltration ONCE Qty: 2 0RF atorvastatin 80 mg tablet 80 mg PO DAILY sucralfate 1 gram tablet 1 g PO QID omeprazole 40 mg capsule,delayed release(DR/EC) 40 mg PO BID Aspir-81 81 mg Tablet,Delayed Release (Dr/Ec) 81 mg PO DAILY cyanocobalamin (vitamin B-12) 1,000 mcg/mL solution 1,000 mcg SUBCUT Q14D Rx Instructions: TAKE ON THURSDAY metoprolol tartrate 25 mg tablet 25 mg PO BID ondansetron 4 mg tablet,disintegrating 4 mg PO Q6H PRN (Reason: nausea and vomiting) Qty: 14 0RF Discharge Orders: Discharge ED (Routine); Ordered 09/19/22 Ordered By: Pat Flores Referrals: Yordan Dotson CPNP [Primary Care Provider] - Discharge Diet: Usual diet Discharge Activity: Increase activity as tolerated Patient Instructions: Flank Pain, Urinary Tract Infection in Women (ED) Activity Restrictions/Additional Instructions: Take antibiotics as already prescribed. Make sure that you are staying well- hydrated. Follow-up with primary care provider in 24 to 48 hours if symptoms are persisting. Return to the ER for new or worsening symptoms. Coding Level of Care Code ED [place] Pumper for Donnyg Fwd Exam Detailed
[2022-09-19 17:34] VITALS: BP 141/88; PULSE 85; RESP 16; O2SAT 96
== END 2022-09-19 17:35 | disposition home or self-care (01) ==
PROVIDERS: Emergency Provider Nurse Practitioner Family; PCP Registered Nurse
DX: N39.0 Urinary tract infection, site not specified (principal); Z79.82 Long term (current) use of aspirin; F17.210 Nicotine dependence, cigarettes, uncomplicated
CPT/HCPCS: 81001; 99283

== ENCOUNTER 2022-11-18 17:40 | Emergency (ER) | payer OTHER, SELFPAY ==
[2022-11-18 17:44] VITALS: BP 177/118; PULSE 71; RESP 16; TEMP 36.9; O2SAT 94; BMI 27.4
--- NOTE | 2022-11-18 17:50 | XRR_ITS ---
PROCEDURE INFORMATION: Exam: XR Chest Exam date and time: 11/18/2022 6:05 PM Age: 52 years old Clinical indication: Pain; Chest pressure; Additional info: Chest pain TECHNIQUE: Imaging protocol: Radiologic exam of the chest. Views: 1 view. COMPARISON: CR XR chest 1V portable [id number] 05/30/2021 7:35 AM FINDINGS: Lungs: Patchy airspace opacities in the left lung base. Discoid opacities in the right lung base. Pleural spaces: Unremarkable. No pleural effusion. No pneumothorax. Heart/Mediastinum: Unremarkable. No cardiomegaly. Bones/joints: Unremarkable. XR/XR chest 1V portable [id number] IMPRESSION: Bibasilar opacities are most likely atelectasis. Pneumonia in the left base is not excluded.
--- NOTE | 2022-11-18 17:54 | ECG_ITS ---
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 Measurements Intervals [place] Rate: 52 P: 60 LA: 154 QRS: 70 QRSD: 90 T: 55 QT: 446 QTc: 416 Interpretive Statements SINUS BRADYCARDIA MODERATE T-WAVE ABNORMALITY, CONSIDER ANTERIOR ISCHEMIA [-0.1+ mV T-WAVE IN V3/V4] Compared to ECG 05/30/2021 10:08:23 T-wave abnormality now present Possible ischemia now present Electronically Signed On 11-18-2022 18:19:40 JUNIOR ACCOUNTANT by Jeremy Lauren M.D. [id number]
--- NOTE | 2022-11-18 17:58 | ED_ITS ---
HPI - Chest Pain General: Chief Complaint: Chest Pain Stated Complaint: CHEST PAIN Time Seen by Provider: 11/18/22 17:58 History of Present Illness: 52-year-old female comes in today with complaints of chest discomfort with increased pain with deep inspiration and numbness in the left arm. Patient reports she was getting ready go to work when she noted some numbness in her left arm that then caused increased pain and discomfort in her chest. Patient took aspirin and then was transported to the [facility] by a fellow employee and was given nitroglycerin at the clinic. Patient reported no improvement or changes in pain with nitro. Patient does report that she had a heart attack about 6 years ago but Angiocath only noted some mild blockage medicine 50% and no stent was placed. That was in [facility]. Patient does have spinal stenosis, smokes tobacco, uses marijuana, history of gastric bypass 20 years ago with R&Y procedure, patient uses daily aspirin, atorvastatin, metoprolol. Patient has had an ulcer before in the past secondary to use of ibuprofen and at this time is on omeprazole, Carafate. Patient appears nontoxic. Patient appears in mild to no pain. Associated symptoms: Deny dyspnea, fever(s), nausea or vomiting Review of Systems Const: Denies: fever(s) Eyes: Denies: change in vision ENMT: Denies: throat pain Card: Reports: chest pain Resp: Denies: dyspnea GI: Denies: nausea or vomiting : Denies: flank pain or difficulty voiding Musc: Denies: back pain Skin/Breast: Denies: rash Neuro: Denies: headache(s) [facility] ED PFSH: Medical History Chest pain Hyperlipidemia Hypertension Myocardial infarction Tobacco use Surgical History (Updated 11/18/22 @ 16:13 by DAVID Barton) History of cholecystectomy History of Benson-en-Y gastric bypass Hx of colonoscopy 4 yrs ago Hx of external ear surgery tubes Hx of knee surgery bilateral 2 on both knees Hx of tonsillectomy Hx of tubal ligation Family History Denies family history of Anesthesia complication Bleeding disorder Social History (Updated 10/30/22 @ 09:37 by Neida Rush LPN) Smoking and tobacco status: current every day smoker cigarettes Packs smoked per day: 0.5 Alcohol intake: current Alcohol intake frequency: 3 or more drinks per day Alcohol type: hard liquor Lives independently: Yes Household members: spouse Physical Exam Const: COMMON NORMALS: alert HENMT: COMMON NORMALS: normocephalic HEAD & SCALP: normocephalic Eye: COMMON NORMALS: Equal, round and reactive pupils present PUPIL: Yes Equal, round and reactive pupils present Neck/C-Spine: COMMON NORMALS: full ROM Chest: COMMONS NORMALS: normal palpation of entire chest wall Resp: COMMON NORMALS: normal respiratory effort AUSCULTATION: wheezes Cardio: COMMON NORMALS: regular rate, regular rhythm, S1 normal heart sound present and S2 normal heart sound present RATE: regular rate RHYTHM: regular rhythm HEART SOUNDS: S1 normal heart sound present and S2 normal heart sound present GI: COMMON NORMALS: Soft to palpation AUSCULTATION: Yes normoactive bowel sounds PALPATION: Yes Soft to palpation and No Tenderness to palpation present (GI) : COMMON NORMALS: Yes no CVA tenderness BLADDER/KIDNEY EXAM: Yes no CVA tenderness Back/Pelvis: COMMON NORMALS: no CVA tenderness Extremity: COMMON NORMALS: no pedal edema Neuro: SENSORIUM/ORIENTATION: Yes alert Psych: COMMON NORMALS: cooperative Skin: COMMON NORMALS: turgor normal GENERAL SKIN EXAM: turgor normal Course Vital Signs: Vital signs: Vital Signs Temperature 98.4 F 11/18/22 17:44 Pulse Rate 71 11/18/22 17:44 Respiratory Rate 16 11/18/22 17:44 Blood Pressure 177/118 11/18/22 17:44 Pulse Oximetry 94 11/18/22 17:44 Oxygen Delivery Me thod 11/18/22 17:44 MDM - Chest Pain Medical Decision Making 52-year-old female comes in today for complaints of chest discomfort. Patient reported some tingling in her left hand but started as she got to work. Patient then started having increased chest discomfort to where she went to the clinic and [facility] and then was transported to the emergency department. Patient had nitro and aspirin in route to the ER. On exam lungs are wheezing throughout. Good perfusion of the skin. No edema is noted in the extremities. Abdomen soft nontender. No chest discomfort is noted with palpation. Differential diagnosis includes but not limited to pleurisy, pneumonia, ACS. CBC and CMP were unremarkable. Patient's troponin was less than 6 at a greater than 2-hour [place]in. BNP was slightly elevated at 240. Chest x-ray noted bibasilar opacities suggestive of atelectasis versus early infiltrate. Pneumonia was suggested on the left base. Due to patient's complaint of deep inspiratory discomfort in the chest with increased on the left than the right. Patient most likely has pneumonia we will go ahead and treat with antibiotics and steroid. I do not believe patient has ACS at this time. Patient should follow-up with primary care for further instruction return to ED for new concerns. Patient reported understanding and agreed to plan. Lab Data 11/18/22 18:03 11/18/22 18:03 Radiology Impressions Chest X-Ray 11/18/22 17:50 IMPRESSION: Bibasilar opacities are most likely atelectasis. Pneumonia in the left base is not excluded. Laboratory Results WBC 7.6 10^3/uL (4.0-10.0) 11/18/22 18:03 RBC 5.09 10^6/uL (4.1-5.3) 11/18/22 18:03 Hgb 15.0 g/dL (11.5-15.3) 11/18/22 18:03 Hct 46.4 % (37.0-47.0) 11/18/22 18:03 MCV 91.2 fl (81-99) 11/18/22 18:03 MCH 29.5 pg (28.0-34.0) 11/18/22 18:03 MCHC 32.3 g/dL (30.0-36.0) 11/18/22 18:03 RDW 14.6 % (12.1-15.1) 11/18/22 18:03 Plt Count 361 10^3/cmm (130-400) 11/18/22 18:03 MPV 9.4 fL (7.4-10.4) 11/18/22 18:03 Neut % (Auto) 58.0 % 11/18/22 18:03 Lymph % (Auto) 34.4 % 11/18/22 18:03 [place] % (Auto) 4.6 % 11/18/22 18:03 Eos % (Auto) 2.2 % 11/18/22 18:03 Baso % (Auto) 0.5 % 11/18/22 18:03 Neut # (Auto) 4.40 10^3/uL (1.8-7.7) 11/18/22 18:03 Lymph # (Auto) 2.6 10^3/uL (0.8-4.8) 11/18/22 18:03 [place] # (Auto) 0.4 10^3/uL (0.2-0.9) 11/18/22 18:03 Eos # (Auto) 0.2 10^3/uL (0.0-0.8) 11/18/22 18:03 Baso # (Auto) 0.0 10^3/uL (0.0-0.1) 11/18/22 18:03 Nucleated RBC % (auto) 0 % 11/18/22 18:03 Nucleated RBCs # 0.0 /100WBC 11/18/22 18:03 Sodium 142 mmol/L (136-145) 11/18/22 18:03 Potassium 3.9 mmol/L (3.5-5.1) 11/18/22 18:03 Chloride 102 mmol/L (98-107) 11/18/22 18:03 Carbon Dioxide 26 mmol/L (22-29) 11/18/22 18:03 Anion Gap 17.9 (5-19) 11/18/22 18:03 BUN 13 mg/dL (6-20) 11/18/22 18:03 Creatinine 0.6 mg/dL (0.5-0.9) 11/18/22 18:03 GFR Calculation 104.6 mL/min (90-130) 11/18/22 18:03 Glucose 94 mg/dL (65-115) 11/18/22 18:03 Calculated Osmolality 294 mOsm/kg (285-295) 11/18/22 18:03 Calcium 9.9 mg/dL (8.5-10.5) 11/18/22 18:03 Total Bilirubin 0.4 mg/dL (0.15-1.2) 11/18/22 18:03 AST 26 U/L (0-32) 11/18/22 18:03 ALT 23 U/L (0-33) 11/18/22 18:03 Alkaline Phosphatase 122 U/L (35-105) H 11/18/22 18:03 Troponin T Baseline 6 ng/L (0-10) 11/18/22 18:03 NT-Pro-B Natriuret Pep 223 pg/mL (0-125) H 11/18/22 18:03 Total Protein 7.7 g/dL (6.6-8.7) 11/18/22 18:03 Albumin 4.5 g/dL (3.5-5.2) 11/18/22 18:03 Globulin 3.2 g/dL (1.3-4.6) 11/18/22 18:03 Lipase 18 U/L (13-60) 11/18/22 18:03 EKG Data EKG 1: EKG interpretation date: 11/18/22 EKG interpretation time: 18:08 Prior EKG tracings: available for review Interpretation: EKG notes sinus rhythm regular rate at [address] elevation or ectopy is noted. Possible T wave abnormality is noted when compared to prior exam of May 30, 2021. Discharge Plan Discharge Patient Disposition: Home Clinical Impression: Pneumonia Qualifiers: Pneumonia type: due to unspecified organism Laterality: left Lung location: lower lobe of lung Qualified Code(s): J18.9 - Pneumonia, unspecified organism Condition: Stable Prescriptions: New azithromycin 250 mg tablet See Rx Instructions .ROUTE .COMPLEX Qty: 6 0RF Rx Instructions: For 250 mg dose pack: take 500 mg today (day 1), then 250 mg for 4 days (days 2-5) tramadol 50 mg tablet 50 mg PO TID PRN (Reason: pain (scale score 7-10)) Qty: 7 0RF No Action cyclobenzaprine 10 mg tablet 10 mg PO TID Marijuana PO BEDTIME PRN dexamethasone sodium phosphate 4 mg/mL solution 8 mg Infiltration ONCE Qty: 2 0RF gabapentin 300 mg capsule 300 mg PO TID Qty: 90 0RF atorvastatin 80 mg tablet 80 mg PO DAILY sucralfate 1 gram tablet 1 g PO QID omeprazole 40 mg capsule,delayed release(DR/EC) 40 mg PO BID Aspir-81 81 mg Tablet,Delayed Release (Dr/Ec) 81 mg PO DAILY cyanocobalamin (vitamin B-12) 1,000 mcg/mL solution 1,000 mcg SUBCUT Q14D Rx Instructions: TAKE ON THURSDAY metoprolol tartrate 25 mg tablet 25 mg PO BID ondansetron 4 mg tablet,disintegrating 4 mg PO Q6H PRN (Reason: nausea and vomiting) Qty: 14 0RF Discharge Orders: Discharge ED (Routine); Ordered 11/18/22 Ordered By: hSyam Aldrich Referrals: Arturo Meehan FNP [Primary Care Provider] - Discharge Diet: Usual diet Discharge Activity: Increase activity as tolerated Patient Instructions: Pneumonia (ED) Activity Restrictions/Additional Instructions: Home and rest. Drink plenty of fluids. Take antibiotics as directed. Follow- up with primary care in 2 to 3 days for recheck. Have a repeat x-ray done in 2 weeks to ensure clearance of pneumonia. Return to ER for new concerns such as increasing shortness of breath, inability to hold fluids down, or worsening chest discomfort. Coding Level of Care Code ED Fire Equipment Operator for César Box
--- NOTE | 2022-11-18 18:10 | PC.NURSE ---
PT PLACED ON CONTINUOUS SPO2, NIBP, AND CM.
[2022-11-18 18:15] LABS: Basophils % 0.5 %; Eosinophils # 0.2 10^3/uL (0.0-0.8); Eosinophils % 2.2 %; Hematocrit 46.4 % (37.0-47.0); Lymphocytes # 2.6 10^3/uL (0.8-4.8); Lymphocytes % 34.4 %; Mean Corpuscular HGB Conc 32.3 g/dL (30.0-36.0); Mean Corpuscular Hemoglobin 29.5 pg (28.0-34.0); Mean Corpuscular Volume 91.2 fl (81-99); Mean Platelet Volume 9.4 fL (7.4-10.4); Monocytes # 0.4 10^3/uL (0.2-0.9); Monocytes % 4.6 %; Nucleated Red Blood Cells % 0 %; Platelet Count 361 10^3/cmm (130-400); Red Blood Count 5.09 10^6/uL (4.1-5.3); Red Cell Distribution Width 14.6 % (12.1-15.1); White Blood Count 7.6 10^3/uL (4.0-10.0)
[2022-11-18] MEDS: nitroglycerin 1 gm/inch oint Pkt 1 INCH TOPICAL (18:19)
[2022-11-18 18:47] LABS: Troponin(5th) Baseline 6 ng/L (0-10)
[2022-11-18 18:57] LABS: Alanine Aminotransferase 23 U/L (0-33); Albumin Level 4.5 g/dL (3.5-5.2); Alkaline Phosphatase 122 U/L (35-105); Anion Gap 17.9 (5-19); Aspartate Amino Transferase 26 U/L (0-32); Blood Urea Nitrogen 13 mg/dL (6-20); Calcium 9.9 mg/dL (8.5-10.5); Carbon Dioxide 26 mmol/L (22-29); Chloride 102 mmol/L (98-107); Creatinine Clr Calc Pharmacy 101.9599; Globulin 3.2 g/dL (1.3-4.6); Glomerular Filtration Rate 104.6 mL/min (90-130); Glucose 94 mg/dL (65-115); Lipase 18 U/L (13-60); NT Pro B Type Natriuretic Pept 223 pg/mL (0-125); Osmolality Calculated 294 mOsm/kg (285-295); Potassium 3.9 mmol/L (3.5-5.1); Sodium 142 mmol/L (136-145); Total Bilirubin 0.4 mg/dL (0.15-1.2); Total Protein 7.7 g/dL (6.6-8.7)
[2022-11-18] MEDS: cefTRIAXone 1,000 MG in sodium chloride 0.9% (plus) 50 ML 100 MG IV (19:40)
[2022-11-18] MEDS: TRAMadol 50 mg Tablet PO (19:40)
[2022-11-18] MEDS: dexamethasone 10 mg/mL INJ IVP (19:41)
[2022-11-18 20:48] VITALS: BP 110/64; PULSE 88; RESP 15
== END 2022-11-18 20:50 | disposition home or self-care (01) ==
PROVIDERS: Emergency Provider Nurse Practitioner Family; PCP Nurse Practitioner Family
DX: J18.9 Pneumonia, unspecified organism (principal); Z79.82 Long term (current) use of aspirin; F17.210 Nicotine dependence, cigarettes, uncomplicated; E78.5 Hyperlipidemia, unspecified; I10 Essential (primary) hypertension
CPT/HCPCS: 71045; 80053; 83690; 83880; 84484; 85025; 93005; 96365; 96375; 99285; J0696; J1100

== ENCOUNTER → 2023-06-04 11:03 | Outpatient (BNVA) | payer OTHER, SELFPAY | PROVIDERS: PCP Nurse Practitioner Family; Referring Provider Nurse Practitioner Family; Visit Provider Internal Medicine Cardiovascular Disease | DX: R07.9 Chest pain, unspecified (principal); I25.2 Old myocardial infarction; I25.10 Atherosclerotic heart disease of native coronary artery without angina pectoris; I10 Essential (primary) hypertension; E78.5 Hyperlipidemia, unspecified; Z98.84 Bariatric surgery status | CPT/HCPCS: 93005 ==

== ENCOUNTER 2023-07-14 12:53 | Outpatient (CLI) | payer OTHER, SELFPAY ==
--- NOTE | 2023-07-14 | ECG_ITS ---
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 Interpretive Statements NAME OF STUDY: TREADMILL STRESS ECHOCARDIOGRAM INDICATION: [ASHD, ] EXERCISE DATA: The patient was exercised by Cuco protocol. Baseline heart rate was 61 beats per minute. Baseline blood pressure was 124/78 millimeters of mercury. Target heart rate was 141 beats per minute. Maximum heart rate achieved was 142, which was 100% of the target heart rate. Maximum blood pressure was 169/77 millimeters of mercury. Total exercise time was 9 minutes and 16 seconds. Maximum METs achieved was 10.3. ELECTROCARDIOGRAM: BASELINE: Showed sinus rhythm, normal axis, no significant ST-T changes at the baseline noted. [] EXERCISE: At the peak exercise level, [] No significant ST-T changes suggestive of ischemia noted. [] RECOVERY: During the recovery period, heart rate dropped appropriately. No significant ST-T changes in the recovery suggestive of ischemia noted. [] CONCLUSION: 1. Exercise capacity is good 2. Heart rate response was appropriate. 3. Blood pressure response was appropriate 4. Symptoms not suggestive of ischemia. 5. Electrocardiogram portion of the stress test was not suggestive of ischemia. However EKG recorded maximum heart rate of 138bpm which is 3 beats less than target heart rate. This reduces sensitivity of stress test slightly but as patient did reach target heart rate (not recorded on ekg), overall EKG portion is not suggestive of ischemia. 6. Echocardiogram portion of stress test will be reported separately Electronically Signed On 07-18-2023 11:33:25 CDT by Nico Izquierdo M.D. [id number]
--- NOTE | 2023-07-14 12:58 | USCV_ITS ---
Lia Mejia Age: 53 Gender: F : 1970 Exam Date: 07/14/2023 13:42 Ordering Phys: Chauncey Tsang MD ([email or web address]) Technologist: Exam Location: [facility] [place] Indication: ASHD Rhythm: Sinus Patient History: HTN/DLD/SMOKER/ [place], FAMILY H/O CAD Cardiac Medications: BETA MARTHA, ASA, STATIN Medications in past 24 hours: NONE Contrast: Stress Results Protocol: Cuco Total dose(mL): Exercise Duration (min:sec): 9:16 METS: 10.3 Resting HR: 70 Resting BP: 124 / 78 Peak HR: 142 Peak BP: / Max Predicted HR: 166 86 % Max Predicted HR Target HR: 141 Double Product: Stress Summary: SOB WHILE ON THE TREADMILL. NO CHEST PAIN BP Response: NORMAL Reason for Termination: TARGET HR REACHED Cardiac Symptoms: SOB THAT RESOLVED QUICKLY DURING RECOVERY ECG Analysis Resting ECG: Normal sinus rhythm with no significant ST T wave changes Stress ECG: Sinus tachycardia. No significant ST T wave changes Arrhythmia: None MEASUREMENTS (Male/Female) Normal Values FINDINGS Baseline echocardiogram showed normal LV systolic function with EF of 55-60%. No significant regional wall motion abnormalities. On stress images, no significant regional wall motion abnormalities seen. However images obtained at significantly lower than target heart rate. This reduces sensitivity of the test. Echo portion of stress test is indeterminate. CONCLUSIONS 1. Echocardiogram portion of stress test is indeterminate as images were obtained at significantly lower than target heart rate. Maximum heart rate at which images were obtained was 115 bpm (target 141 bpm) and at that heart rate no regional wall motion abnormalities seen. However can not rule out ischemia with these findings. 2. Baseline echocardiogram showed normal LV systolic function 3. EKG portion of the stress test not showing ischemic changes but has lower sensitivity as EKG obtained at 3 beats below target heart rate. Nico Izquierdo MD (Electronically Signed) Final Date: 18 July 2023 11:42 S
[2023-07-14 13:00] VITALS: BMI 27.6
[2023-07-14 14:02] VITALS: BP 137/66; PULSE 79
== END 2023-07-14 12:54 | disposition home or self-care (01) ==
PROVIDERS: PCP Nurse Practitioner Family; Visit Provider Internal Medicine Cardiovascular Disease
DX: I25.10 Atherosclerotic heart disease of native coronary artery without angina pectoris (principal)
CPT/HCPCS: 93017; 93350

== ENCOUNTER 2024-03-16 21:06 | Observation (INO) | payer OTHER, SELFPAY ==
[2024-03-16 21:11] VITALS: BP 115/77; PULSE 100; RESP 18; TEMP 36.6; O2SAT 95; BMI 29.2
[2024-03-16 22:16] LABS: Basophils # 0.1 10^3/uL (0.0-0.1); Basophils % 0.4 %; Eosinophils % 0.2 %; Hematocrit 46.8 % (36-47); Lymphocytes # 1.2 10^3/uL (0.8-4.8); Lymphocytes % 9.7 %; Mean Corpuscular HGB Conc 32.1 g/dL (30-55); Mean Corpuscular Hemoglobin 28.5 pg (27-33); Mean Platelet Volume 8.8 fL (7.4-10.4); Monocytes # 0.4 10^3/uL (0.2-0.9); Monocytes % 2.9 %; Neutrophils # 10.96 10^3/uL (1.8-7.7); Neutrophils % 86.5 %; Nucleated Red Blood Cells % 0 %; Platelet Count 339 10^3/cmm (157-399); Red Blood Count 5.26 10^6/uL (3.85-5.65); Red Cell Distribution Width 15.2 % (12.1-15.1); White Blood Count 12.67 10^3/uL (3.29-11.43)
[2024-03-16] MEDS: sodium chloride 0.9% 1,000 ML 999 ML IV ×2 (22:22→23:09)
[2024-03-16 22:26] LABS: Alanine Aminotransferase 13 U/L (0-33); Albumin Level 4.1 g/dL (3.5-5.2); Alkaline Phosphatase 144 U/L (35-105); Anion Gap 17.8 (5-19); Aspartate Amino Transferase 24 U/L (0-32); Blood Urea Nitrogen 23 mg/dL (6-20); Carbon Dioxide 22 mmol/L (22-29); Chloride 103 mmol/L (98-107); Globulin 3.8 g/dL (1.3-4.6); Glomerular Filtration Rate 42.7 mL/min (90-130); Glucose 109 mg/dL (65-115); Lipase 13 U/L (13-60); Magnesium 1.9 mg/dL (1.7-2.3); Osmolality Calculated 292 mOsm/kg (285-295); Potassium 3.8 mmol/L (3.5-5.1); Sodium 139 mmol/L (136-145); Total Bilirubin 0.4 mg/dL (0.15-1.2); Total Protein 7.9 g/dL (6.6-8.7)
[2024-03-16 22:29] LABS: Creatinine Clr Calc Pharmacy 47.9345
--- NOTE | 2024-03-16 23:00 | PC.NURSE ---
Pt states her cramping is better after IVFs, states she does not have to urinate. Dr Reinoso aware, 2nd bag of IVFs ordered.
--- NOTE | 2024-03-16 23:01 | ED_ITS ---
HPI - Abdominal Pain 2 General: Chief Complaint: Abdominal Pain Stated Complaint: abd pain history of perforated ulcer Time Seen by Provider: 03/16/24 21:36 History of Present Illness: Patient presents to the ER with lower quadrant abdominal pain and cramping. This is been going on ever since Thursday. Been getting worse this afternoon. Patient does have a history of gastric bypass and perforated ulcer this was about 15 years ago. Patient has been on Carafate and is omeprazole consistently. Patient has had diarrhea. Patient states that everything she eats goes right through her immediately patient denies any nausea vomiting. Patient's curious if she has another ulcer. Patient still urinates multiple times a day. Review of Systems 2 General: Reports: 10 or more systems reviewed and unremarkable except in HPI and below PFSH ED 2 PFSH: Medical History Tobacco use Hyperlipidemia Hypertension Myocardial infarction Chest pain Surgical History Hx of colonoscopy 4 yrs ago History of cholecystectomy Hx of external ear surgery tubes Hx of tonsillectomy Hx of tubal ligation Hx of knee surgery bilateral 2 on both knees History of Benson-en-Y gastric bypass Family History Denies family history of Anesthesia complication Bleeding disorder Social History Smoking and tobacco/nicotine status: current every day tobacco/nicotine user cigarettes Packs smoked per day: 0.5 Alcohol intake: current Alcohol intake frequency: 3 or more drinks per day Alcohol type: hard liquor Substance/Drug Use: former Lives independently: Yes Household members: spouse Physical Exam 2 Const: COMMON NORMALS: no acute distress, average body habitus, patient oriented x3, no limitations, healthy appearing, alert and well nourished HENMT: COMMON NORMALS: normocephalic, atraumatic, hearing grossly normal bilaterally, external ears normal, Normal external nose present and moist oral mucous membranes HEAD & SCALP: normocephalic and atraumatic NOSE: Normal external nose present EXTERNAL EAR: Yes external ears normal Neck/C-Spine: COMMON NORMALS: no JVD Chest: COMMONS NORMALS: normal inspection of the chest and normal palpation of entire chest wall Resp: COMMON NORMALS: normal respiratory effort, No retractions, No use of accessory muscles and clear to auscultation bilaterally AUSCULTATION: clear to auscultation bilaterally Cardio: COMMON NORMALS: no JVD, regular rate, regular rhythm, S1 normal heart sound present, S2 normal heart sound present, No gallops present (Cardio), No clicks present (Cardio), No murmurs present (Cardio) and No rub (Cardio) R ATE: regular rate RHYTHM: regular rhythm HEART SOUNDS: S1 normal heart sound present and S2 normal heart sound present GI: COMMON NORMALS: Normal to inspection, nondistended, normoactive bowel sounds present, Soft to palpation, No hepatosplenomegaly present and no masses; negative for non-tender (Minimal tenderness to palpation over suprapubic region) PALPATION: Yes Soft to palpation and Yes No hepatosplenomegaly present Neuro: COMMON NORMALS: patient oriented x3 SENSORIUM/ORIENTATION: Yes alert Course 2 Vital Signs: Vital signs: Vital Signs Temperature 97.9 F 03/16/24 21:11 Pulse Rate 92 03/17/24 00:33 Respiratory Rate 16 03/17/24 00:33 Blood Pressure 160/85 03/17/24 00:33 Pulse Oximetry 91 03/17/24 00:33 Oxygen Delivery Me thod Room Air 03/17/24 00:07 MDM - Abdominal Pain Medical Decision Making Lab work was obtained, CT scan of the abdomen pelvis was obtained, this showed possible small bowel intussusception to the level of the gastric bypass anastomosis. Lab work was essentially otherwise unremarkable except for mildly elevated white count of 12 and BUN/creatinine slightly elevated at 23/1.3, Dr. Crawford was consulted who says usually the small bowel intussusception is transitory however due to the location next to the anastomosis for the gastric bypass this may change the prognosis. He suggest we transfer to a facility where bariatric surgeon is present in case this continues to worsen and may need surgery on the anastomosis itself. Discussed these results and the surgeons opinion about her name transferred with the patient. Patient suggest we try transferring [place] [facility] as [place] is been seen [place] there in the distant past for a perforated ulcer or if they will have any beds she would like to go to [place] where she has seen a bariatric specialist up there but cannot remember the name. Dr. Toy bariatric surgeon at [facility] was consulted and he said since it does not appear to be an obstruction and with no nausea vomiting he would recommend treating her for the colitis and our general surgeon should be able to do that, if she appears to become obstructed he recommends an oral contrast CT to delineate that for sure and we would transfer to their ER as needed. was notified of this finding and he said he will follow from a surgical standpoint would like medical management of the patient from the hospitalist. Dr. Terry was consulted who agreed for placing the patient in [facility] and consulting general surgery. Differential Diagnosis Likely abdominal pain Medical Records I reviewed the patient's medical records. Lab Data I reviewed the patient's lab results. 03/16/24 21:45 03/16/24 21:45 Labs/Radiology: Radiology Impressions Abdomen/Pelvis CT 03/17/24 01:50 IMPRESSION: 1. Colitis. 2. Postoperative changes status post gastric bypass procedure. There is a small bowel small bowel intussusception at the level of the small bowel suture line. 3. Please see above comments for additional details. 4. Small left adrenal nodule. No follow-up is necessary. (Reference: Shantel) References: Shantel CUELLO, et al. Management of Incidental Adrenal Masses: A White Paper of the ACR Incidental Findings Committee. J Am Harvey Radiol. 2017;14(8):3139-9325. ADDENDUM: 03/17/24 0432 COMMENT: THIS REPORT CONTAINS FINDINGS THAT MAY BE CRITICAL TO PATIENT CARE. The exam findings were verbally communicated by me to Checo Reinoso via telephone conference at 4:31 AM CDT on 03/17/2024. The findings were acknowledged and understood. Laboratory Results WBC 12.67 10^3/uL (3.29-11.43) H 03/16/24 21:45 RBC 5.26 10^6/uL (3.85-5.65) 03/16/24 21:45 Hgb 15.00 g/dL (11.27-16.99) 03/16/24 21:45 Hct 46.8 % (36-47) 03/16/24 21:45 MCV 89.0 fl (85-98) 03/16/24 21:45 MCH 28.5 pg (27-33) 03/16/24 21:45 MCHC 32.1 g/dL (30-55) 03/16/24 21:45 RDW 15.2 % (12.1-15.1) H 03/16/24 21:45 Plt Count 339 10^3/cmm (157-399) 03/16/24 21:45 MPV 8.8 fL (7.4-10.4) 03/16/24 21:45 Neut % (Auto) 86.5 % 03/16/24 21:45 Lymph % (Auto) 9.7 % 03/16/24 21:45 [place] % (Auto) 2.9 % 03/16/24 21:45 Eos % (Auto) 0.2 % 03/16/24 21:45 Baso % (Auto) 0.4 % 03/16/24 21:45 Neut # (Auto) 10.96 10^3/uL (1.8-7.7) H 03/16/24 21:45 Lymph # (Auto) 1.2 10^3/uL (0.8-4.8) 03/16/24 21:45 [place] # (Auto) 0.4 10^3/uL (0.2-0.9) 03/16/24 21:45 Eos # (Auto) 0.0 10^3/uL (0.0-0.8) 03/16/24 21:45 Baso # (Auto) 0.1 10^3/uL (0.0-0.1) 03/16/24 21:45 Nucleated RBC % (auto) 0 % 03/16/24 21:45 Nucleated RBCs # 0.0 /100WBC 03/16/24 21:45 Sodium 139 mmol/L (136-145) 03/16/24 21:45 Potassium 3.8 mmol/L (3.5-5.1) 03/16/24 21:45 Chloride 103 mmol/L (98-107) 03/16/24 21:45 Carbon Dioxide 22 mmol/L (22-29) 03/16/24 21:45 Anion Gap 17.8 (5-19) 03/16/24 21:45 BUN 23 mg/dL (6-20) H 03/16/24 21:45 Creatinine 1.3 mg/dL (0.5-0.9) H 03/16/24 21:45 GFR Calculation 42.7 mL/min (90-130) L 03/16/24 21:45 Glucose 109 mg/dL (65-115) 03/16/24 21:45 Calculated Osmolality 292 mOsm/kg (285-295) 03/16/24 21:45 Calcium 9.0 mg/dL (8.5-10.5) 03/16/24 21:45 Magnesium 1.9 mg/dL (1.7-2.3) 03/16/24 21:45 Total Bilirubin 0.4 mg/dL (0.15-1.2) 03/16/24 21:45 AST 24 U/L (0-32) 03/16/24 21:45 ALT 13 U/L (0-33) 03/16/24 21:45 Alkaline Phosphatase 144 U/L (35-105) H 03/16/24 21:45 Total Protein 7.9 g/dL (6.6-8.7) 03/16/24 21:45 Albumin 4.1 g/dL (3.5-5.2) 03/16/24 21:45 Globulin 3.8 g/dL (1.3-4.6) 03/16/24 21:45 Lipase 13 U/L (13-60) 03/16/24 21:45 Urine Color Yellow (Yellow) 03/17/24 00:05 Urine Appearance Slightly cloudy (CLEAR) 03/17/24 00:05 Urine pH 5 (5-7) 03/17/24 00:05 Ur Specific [place] 1.020 (1.005-1.030) 03/17/24 00:05 Urine Protein Trace (Negative) 03/17/24 00:05 Urine Glucose (UA) Norm (Normal) 03/17/24 00:05 Urine Ketones 2+ (Negative) H 03/17/24 00:05 Urine Blood 3+ (Negative) H 03/17/24 00:05 Urine Nitrate Negative (Negative) 03/17/24 00:05 Urine Bilirubin Neg (Negative) 03/17/24 00:05 Urine Urobilinogen Norm mg/dL (Negative) 03/17/24 00:05 Ur Leukocyte Esterase Negative (Negative) 03/17/24 00:05 Urine RBC 25-40 /hpf (0-2) H 03/17/24 00:05 Urine WBC 0-4 /hpf (0-5) H 03/17/24 00:05 Ur Squamous Epith Cells 15-25 /hpf (0-5) H 03/17/24 00:05 Amorphous Sediment Not Reportable 03/17/24 00:05 Urine Bacteria 1+ /hpf (NONE) H 03/17/24 00:05 Urine Mucus 1+ /hpf 03/17/24 00:05 C. difficile (PCR) Negative (Negative) 03/16/24 21:19 No radiology studies performed this visit Discharge Plan Discharge Patient Disposition: Placed in Observation Clinical Impression: Colitis, Intussusception of small bowel, History of gastric bypass Diarrhea Qualifiers: Diarrhea type: unspecified type Qualified Code(s): R19.7 - Diarrhea, unspecified Coding Level of Care Code ED Ring Striker for César Box
[2024-03-16 23:08] LABS: C.Diff PCR (Lab) NEGATIVE (Negative)
[2024-03-17] VITALS (10 sets, daily range): BP systolic 103–160; BP diastolic 65–85; PULSE 63–92; RESP 16–17; TEMP 36.6–36.8; O2SAT 91–99; BMI 29.7
[2024-03-17 00:30] LABS: Add Urine Microscopic? YES; Bilirubin Urine Neg (Negative); Blood Urine 3+ (Negative); Glucose Urine UA Norm (Normal); Ketones Urine 2+ (Negative); Leukocyte Esterase Urine Negative (Negative); Nitrate Urine Negative (Negative); Protein Urine Trace (Negative); Urine Appearance Slightly Cloudy (CLEAR); Urine Color Yellow (Yellow); Urobilinogen Urine Norm (Negative); pH Urine 5 (5-7)
[2024-03-17 00:31] LABS: Add Urine Culture? No; Bacteria Urine 1+ /hpf; Mucus Urine 1+ /hpf; RBC Urine 25-40 /hpf (0-2); Squamous Epithelial Cell Urine 15-25 /hpf (0-5); WBC Urine 0-4 /hpf (0-5)
--- NOTE | 2024-03-17 01:50 | CTR_ITS ---
PROCEDURE INFORMATION: Exam: CT Abdomen And Pelvis With Contrast Exam date and time: 03/17/2024 2:09 AM Age: 53 years old Clinical indication: Abdominal pain; Prior surgery; Surgery date: 6+ months; Surgery type: Gastric, gb, tubal; Additional info: Abd pain, hemoccult positive, TECHNIQUE: Imaging protocol: Computed tomography of the abdomen and pelvis with contrast. Radiation optimization: All CT scans at this facility use at least one of these dose optimization techniques: automated exposure control; mA and/or kV adjustment per patient size (includes targeted exams where dose is matched to clinical indication); or iterative reconstruction. Contrast material: OMNI 350; Contrast volume: 100 ml; Contrast route: INTRAVENOUS (IV); COMPARISON: CT abdomen pelvis w con* [id number] 02/01/2022 1:37 PM RADIATION DOSE METRICS: Total DLP (mGy-cm): 489.5 FINDINGS: Lungs: Lung bases are clear as visualized. Liver: Normal. No mass. Gallbladder and biliary ducts: There are surgical clips within the gallbladder fossa. Pancreas: Normal. No ductal dilation. Spleen: Normal. No splenomegaly. Adrenal glands: There is a 1.4 cm low-density left adrenal nodule. The nodule measures 49 Hounsfield units in density. The nodule is unchanged when compared to prior exam. Right adrenal gland is normal. Kidneys and ureters: Normal. No hydronephrosis. Stomach and bowel: There are postoperative changes presumably related to a prior gastric bypass procedure. There are surgical clips and suture lines involving the stomach and small bowel loops. There appears to be a small bowel small bowel intussusception at the small bowel anastomotic suture line. No definite proximal small bowel dilatation is appreciated. There is diffuse wall thickening involving the colon suggesting a colitis. There is a lesser degree of mild wall thickening involving terminal ileal loops. Appendix: The appendix is not definitely identified. Intraperitoneal space: Unremarkable. No free air. No significant fluid collection. Vasculature: The aorta is normal in caliber. There is calcified plaque involving the aorta and its branch vessels. Lymph nodes: Unremarkable. No enlarged lymph nodes. Urinary bladder: Unremarkable as visualized. Reproductive: The uterus is not definitely identified. Bones/joints: Unremarkable. No acute fracture. Soft tissues: Unremarkable. CT/CT abdomen pelvis w con* [id number] IMPRESSION: 1. Colitis. 2. Postoperative changes status post gastric bypass procedure. There is a small bowel small bowel intussusception at the level of the small bowel suture line. 3. Please see above comments for additional details. 4. Small left adrenal nodule. No follow-up is necessary. (Reference: Shantel) References: Shantel CUELLO, et al. Management of Incidental Adrenal Masses: A White Paper of the ACR Incidental Findings Committee. J Am Harvey Radiol. 2017;14(8):2695-6696.
[2024-03-17] MEDS: iohexol 350 mg/mL 500 mL Btl (per mL) IV (02:13)
[2024-03-17] MEDS: metroNIDAZOLE IV 500 MG/100 ML PREMIX 100 MG IV ×3 (04:58→20:17)
[2024-03-17] MEDS: ciprofloxacin 400 MG/200 ML PREMIX 200 MG IV ×3 (04:59→23:37)
[2024-03-17] MEDS: morphine 4 mg/mL SDV 1 mL IVP (05:19)
--- NOTE | 2024-03-17 05:56 | P.HP_ITS ---
Providers/Chief Complaint 2 Admitting Physician: Eleanor Terry MD Primary Care Provider: Kristen Mejia NP Chief Complaint: abd pain history of perforated ulcer History of Present Illness Lia Mejia is a 53 year old female with past Medical history of hypertension, hyperlipidemia, coronary artery disease with 50% stenosis, bariatric surgery 18 years ago, history of PR, obesity presented to the hospital today with complaint of abdominal pain. She says this started 2 days ago and has been cramping and she has been having diarrhea. She is staying she is unable to keep anything down and anything she eats she ends up having diarrhea. She is going to the bathroom more than 10 times a day. He describes it completely watery and very dark color. Denies nausea vomiting. She denies any other complaints at this time. She states she has a history of gastric ulcer and came to the hospital thinking that was the cause of her symptoms. Denies history of kidney stones. Drinks filtered water. Denies drinking from a well. Denies eating canned foods or eating at a restaurant. ER course: 160/85 pulse rate 16, pulse 92, temperature 97.9, saturating 91% on room air. CT abdomen pelvis. 20 this showed possible small bowel intussusception to the level of gastric bypass anastomosis. White count 12, creatinine 1.3. Initially general surgery was consulted who recommended transfer to higher level of care with bariatric surgery capabilities. ER doctor discussed case with Dr. Figueroa bariatric surgeon at [facility] who reviewed images and recommended admission to [facility] for IV antibiotics to treat colitis and if patient develops signs of obstruction to obtain oral contrast CT and at that point reach out to [place] for possible transfer. This was rediscussed with Dr. Paulina You who agreed to follow patient. Medicine to admit. Urinalysis shows 2+ ketones, 3+ blood, 25-40 RBCs, 0-4 WBCs, 1+ bacteria. Creatinine 1.3. Baseline creatinine normal. Initial C. difficile screen negative in ER. Medications/Allergies Home Medications Medication Instructions Recorded Confirmed Last Taken Type aspirin 81 mg tablet,delayed 81 mg PO DAILY 05/30/21 03/17/24 03/16/24 History release atorvastatin 80 mg tablet 80 mg PO DAILY 05/30/21 03/17/24 03/16/24 History cyanocobalamin (vitamin B-12) 1,000 mcg SUBCUT Q14D 05/30/21 03/17/24 03/12/24 History 1,000 mcg/mL injection solution metoprolol tartrate 25 mg tablet 25 mg PO BID 05/30/21 03/17/24 03/16/24 History omeprazole 40 mg capsule,delayed 40 mg PO BID 05/30/21 03/17/24 03/16/24 History release sucralfate 1 gram tablet 1 g PO QID 05/30/21 03/17/24 03/16/24 History tramadol 50 mg tablet 50 mg PO TID PRN pain (scale score 11/18/22 03/17/24 Unknown Rx 7-10) #7 tabs lisinopril 10 mg tablet 10 mg PO DAILY #90 tabs 12/03/23 03/17/24 03/16/24 Rx Allergies Allergy/AdvReac Type Severity Reaction Status Date / Time Influenza Virus Vaccines Allergy rash Verified 12/03/23 11:19 NSAIDS (Non-Steroidal Allergy ALGY-Anaphy Verified 12/03/23 11:19 Anti-Inflamma laxis PFSH Acute 2 PFSH: Medical History Tobacco use Hyperlipidemia Hypertension Myocardial infarction Chest pain Surgical History Hx of colonoscopy 4 yrs ago History of cholecystectomy Hx of external ear surgery tubes Hx of tonsillectomy Hx of tubal ligation Hx of knee surgery bilateral 2 on both knees History of Benson-en-Y gastric bypass Family History Denies family history of Anesthesia complication Bleeding disorder Social History Smoking and tobacco/nicotine status: current every day tobacco/nicotine user cigarettes Packs smoked per day: 0.5 Alcohol intake: current Alcohol intake frequency: 3 or more drinks per day Alcohol type: hard liquor Substance/Drug Use: former Lives independently: Yes Household members: spouse Vitals/I&O/Wt Last Vital Signs Temp 97.9 F 03/16/24 21:11 Pulse 84 03/17/24 04:57 Resp 16 03/17/24 04:57 BP 128/65 03/17/24 04:57 Pulse Ox 96 07/04/24 04:57 O2 Del Method Room Air 03/17/24 00:07 03/16/24 03/16/24 03/17/24 14:59 22:59 06:59 Intake Total 2146.667 / 2146.667 Balance 2146.667 / 2146.667 Weight last 48 hrs Weight 74.843 kg Physical Exam 2 Narrative: General: Alert oriented x3, patient seen in bed appearing comfortable at this time no acute distress. No guarding present. HEENT: Normocephalic, atraumatic, EOMI, breathing comfortably on room air. Cardio: Regular rate rhythm, normal S1-S2 Respiratory: Good bilateral air entry, no wheezes no rhonchi appreciated, clear to auscultation GI: Abdomen soft, mildly tender to palpation left lower quadrant, nondistended, bowel sounds + Extremities: No edema. Unable to check for pedal pulses as patient is wearing sneakers. Data 03/16/24 21:45 03/16/24 21:45 Micro: Microbiology 03/16/24 21:19 Stool Lactoferrin - Final Stool Occult Blood (FIT) - Final A&P Assessment and plan (1) Hypertension: Qualifiers: Hypertension type: primary hypertension Qualified Code(s): I10 - Essential (primary) hypertension (2) History of PR (myocardial infarction): (3) Status post gastric bypass for obesity: (4) Colitis: (5) Intussusception of small bowel: (6) Diarrhea: Qualifiers: Diarrhea type: unspecified type Qualified Code(s): R19.7 - Diarrhea, unspecified (7) Abdominal pain: (8) DOUGIE (acute kidney injury): Plan #Colitis #Small bowel intussusception #History of bariatric surgery 18 years ago #Watery diarrhea #Dehydration #DOUGIE #0.4 cm low-density left adrenal nodule #History of PR, 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 Patient is having watery diarrhea for the last 2 days which is yellowish and green in color as per nursing staff. Patient is on chronic omeprazole she states she has been taking for years and years. No recent antibiotic use. Initial C. difficile test negative. I still have a high clinical suspicion therefore we will retest for C. difficile. ? Small bowel intussusception possibly transitory or may lead to complete obstruction. Continue to monitor. Serial abdominal exams, observe patient clinically. If she develops signs of obstruction we will need to do CT abdomen pelvis with oral contrast. ? Check stool for ova parasite, check bacterial stool culture ? Check for Giardia, Cryptosporidium ? Check lactoferrin ? Continue on ciprofloxacin, Flagyl ? Consult general surgery. ? Continue on normal saline 125 cc/h. Will give patient 1 L normal saline bolus stat. Labs show hemoconcentration and patient is dehydrated ? Continue aspirin, atorvastatin, metoprolol. Hold lisinopril at this time. Hold other nephrotoxic agents. Home medications need to be confirmed. ? Left adrenal nodule?no follow-up necessary. ? Check vitamin B12, lactic acid -Baseline creatinine normal, creatinine today 1.3. Most likely secondary to dehydration. Continue IV fluids. I expect this to improve. ? Urinalysis abnormal. Will repeat. Full code Due to prophylaxis: Heparin SQ twice daily Clear liquid diet Attestations 2 Medical Necessity Statement*: Admit to observation for now. Should patient develop a complete bowel obstruction she will need to be transferred to higher level of care. Diagnoses Primary hypertension I10 Hypertension type: primary hypertension History of PR (myocardial infarction) I25.2 Status post gastric bypass for obesity Z98.84 Colitis K52.9 Intussusception of small bowel K56.1 Diarrhea R19.7 Diarrhea type: unspecified type Abdominal pain R10.9 DOUGIE (acute kidney injury) N17.9
[2024-03-17 06:37] LABS: Lactic Sepsis W/Reflex 0.6 mmol/L (0.5-2.2)
[2024-03-17] MEDS: heparin 5,000 unit/mL INJ 1 mL 5000 UNIT SUBCUT ×2 (06:57→17:51)
[2024-03-17] MEDS: sodium chlor 0.9% + KCl 20 mEq 20 MEQ/1,000 ML BAG 125 MEQ IV ×3 (06:57→23:37)
[2024-03-17 07:00] LABS: Procalcitonin 0.18 ng/mL (0-0.5); Thyroid Stimulating Hormone 1.02 uIU/mL (0.27-4.20); Vitamin B12 265 pg/mL (232-1245)
[2024-03-17] MEDS: aspirin 81 mg EC Tablet PO (08:19)
[2024-03-17] MEDS: pantoprazole DR 40 mg Tablet PO (08:19)
--- NOTE | 2024-03-17 08:31 | P.CONIM_ITS ---
Providers/Reason For Consult 2 Consulting Physician/Specialty*: General surgery Reason for Consult*: Colitis, history of gastric bypass and intussusception. Attending Physician: Alexsander Lowry MD Primary Care Provider: Kristen Mejia NP History of Present Illness History of Present Illness Lia Mejia is a 53 year old female who presented to the hospital with 2 to 3 days of pelvic abdominal pain and diarrhea. Patient has extensive surgical history including gastric bypass 11 years ago and perforated gastric ulcer 5 to 7 years ago. Patient now presents with diarrhea and abdominal pain. Workup done in the emergency department included a CT scan of the abdomen and pelvis which showed evidence of a colitis and in addition to that there was a finding of a possible intussusception at the level of the jejunojejunal anastomosis, without evidence of a small bowel obstruction or any other concerning features. Review of Systems 2 General: Reports: 10 or more systems reviewed and unremarkable except in HPI and below Medications/Allergies Home Medications Medication Instructions Recorded Confirmed Last Taken Type aspirin 81 mg tablet,delayed 81 mg PO DAILY 05/30/21 03/17/24 03/16/24 History release atorvastatin 80 mg tablet 80 mg PO DAILY 05/30/21 03/17/24 03/16/24 History cyanocobalamin (vitamin B-12) 1,000 mcg SUBCUT Q14D 05/30/21 03/17/24 03/12/24 History 1,000 mcg/mL injection solution metoprolol tartrate 25 mg tablet 25 mg PO BID 05/30/21 03/17/24 03/16/24 History omeprazole 40 mg capsule,delayed 40 mg PO BID 05/30/21 03/17/24 03/16/24 History release sucralfate 1 gram tablet 1 g PO QID 05/30/21 03/17/24 03/16/24 History tramadol 50 mg tablet 50 mg PO TID PRN pain (scale score 11/18/22 03/17/24 Unknown Rx 7-10) #7 tabs lisinopril 10 mg tablet 10 mg PO DAILY #90 tabs 12/03/23 03/17/24 03/16/24 Rx Allergies Allergy/AdvReac Type Severity Reaction Status Date / Time Influenza Virus Vaccines Allergy rash Verified 12/03/23 11:19 NSAIDS (Non-Steroidal Allergy ALGY-Anaphy Verified 12/03/23 11:19 Anti-Inflamma laxis Current Medications Generic Name Dose Route Start Last Admin Trade Name Patricia PRN Reason Stop Dose Admin Aspirin 81 mg 03/17/24 09:00 03/17/24 08:19 Aspirin 81 Mg Ec Tablet PO 81 mg DAILY ARANZA Administration Heparin Sodium (Porcine) 5,000 unit 03/17/24 06:15 03/17/24 06:57 Heparin 5,000 Unit/Ml Inj 1 Ml SUBCUT 5,000 unit Q12H ARANZA Administration Potassium Chloride/Sodium Chloride 20 meq in 1,000 mls @ 125 mls/hr 03/17/24 06:15 03/17/24 06:57 Sodium Chlor 0.9% + Kcl 20 Meq IV 125 mls/hr .Q8H ARANZA Administration Pantoprazole Sodium 40 mg 03/17/24 09:00 03/17/24 08:[address] 40 Mg Tablet PO 40 mg DAILY ARANZA Administration PFSH Acute 2 PFSH: Medical History Tobacco use Hyperlipidemia Hypertension Myocardial infarction Chest pain Surgical History Hx of colonoscopy 4 yrs ago History of cholecystectomy Hx of external ear surgery tubes Hx of tonsillectomy Hx of tubal ligation Hx of knee surgery bilateral 2 on both knees History of Benson-en-Y gastric bypass Family History Denies family history of Anesthesia complication Bleeding disorder Social History Smoking and tobacco/nicotine status: current every day tobacco/nicotine user cigarettes Packs smoked per day: 0.5 Alcohol intake: current Alcohol intake frequency: 3 or more drinks per day Alcohol type: hard liquor Substance/Drug Use: former Lives independently: Yes Household members: spouse Vitals/I&O/Wt Last Vital Signs Temp 98.3 F 03/17/24 07:29 Pulse 83 03/17/24 07:29 Resp 16 03/17/24 07:29 BP 114/76 03/17/24 07:29 Pulse Ox 95 03/17/24 07:29 O2 Del Method Room Air 03/17/24 07:29 03/16/24 03/17/24 03/17/24 22:59 06:59 14:59 Intake Total 2200.000 / 2200.000 100 / 100 Balance 2200.000 / 2200.000 100 / 100 Weight last 48 hrs Weight 168 lb Weight 165 lb Physical Exam 2 Narrative: General : Patient is well developed , no acute distress, oriented x3 Head : Normal cephalic, a-traumatic. Nose : Mucous membranes are without erythema. Lungs : Equal chest rise bilaterally, no use of accessory muscles, trachea is midline. CV : Rate and rhythm are normal. Abdomen : Soft, minimal tenderness in the suprapubic region Extremities : No edema. Upper extremities are normal bilaterally. Back : non-tender to palpation, no CVA tenderness. Data 03/16/24 21:45 03/16/24 21:45 Micro: Microbiology 03/16/24 21:19 Stool Lactoferrin - Final Stool Occult Blood (FIT) - Final A&P Assessment and plan (1) Abdominal pain: (2) Status post gastric bypass for obesity: (3) Colitis: (4) Intussusception of small bowel: Plan Is a 53-year-old female presenting with abdominal pain and diarrhea, she has history of gastric bypass. CT scan of the abdomen pelvis done in the ED showed evidence of colitis and there was also some possibility of intussusception at the level of the jejunojejunal anastomosis without concerning features of significant proximal obstruction. When I was contacted regarding this case my decision was for the patient to be transferred to higher level of care for evaluation by bariatric surgeon due to the possibility of intussusception of the jejunojejunal anastomosis. Swelling to subsection in the small bowel is usually transitory and incidental in nature when there is a surgical anastomosis the risks of obstruction caused by pain to subside showing increases and therefore it was my assessment that this was the safest path for the patient. Bariatric surgeon at outside facility was contacted, it was their opinion that since patient is asymptomatic no need for treatment for the intussusception is needed and therefore we could manage her colitis without needing to be concerned about the possibility of need for revisional surgery at this time. Patient was admitted, placed on IV fluids and IV antibiotics. On my examination her abdominal exam is benign there is no evidence of peritonitis on any other concerning symptoms, she has not had any nausea or vomit. If her progression continues to improve she can be discharged and she should be follow-up by a bariatric surgeon as outpatient for repeat imaging and for the possibility of revisional surgery as needed. If at any point during hospital stay the patient develops obstructive symptoms she will need to be immediately transferred to higher level of care for bariatric surgery evaluation. As patient may require revision of her anastomosis which I cannot offer in our institution. Patient is aware of this and is agreeable. -Continue medical management of colitis -Will monitor for symptoms of obstruction -Intussusception most likely transitory and not clinically relevant at this time, in case of obstructive symptoms patient will require transfer. All other management per medical team - Coding Level of Care Code Acute Code for Chg Fwd Diagnoses Abdominal pain R10.9 Status post gastric bypass for obesity Z98.84 Colitis K52.9 Intussusception of small bowel K56.1
--- NOTE | 2024-03-17 10:59 | P.PN_ITS ---
Subjective 2 Subjective: patient was seen this morning, no fever, no chills, has minimal abdominal pain, passing gas, no lightheadedness, no dizziness Vitals/I&O/Wt Last Vital Signs Temp 98.3 F 03/17/24 07:29 Pulse 83 03/17/24 07:29 Resp 16 03/17/24 07:29 BP 114/76 03/17/24 07:29 Pulse Ox 95 03/17/24 07:29 O2 Del Method Room Air 03/17/24 07:29 03/16/24 03/17/24 03/17/24 22:59 06:59 14:59 Intake Total 2200.000 / 2200.000 100 / 100 Balance 2200.000 / 2200.000 100 / 100 Weight last 48 hrs Weight 76.204 kg Weight 74.843 kg Physical Exam 2 Const: COMMON NORMALS: no acute distress ORIENTATION/CONSCIOUSNESS: Yes awake, Yes oriented to person, Yes oriented to place and Yes oriented to time Resp: COMMON NORMALS: normal respiratory effort, No retractions, No use of accessory muscles and clear to auscultation bilaterally AUSCULTATION: clear to auscultation bilaterally Cardio: COMMON NORMALS: regular rate, regular rhythm, S1 normal heart sound present and S2 normal heart sound present RATE: regular rate RHYTHM: r egular rhythm HEART SOUNDS: S1 normal heart sound present and S2 normal heart sound present GI: OTHER: abdomen, soft, slightly distended, good bowel sounds Extremity: COMMON NORMALS: no pedal edema Neuro: SENSORIUM/ORIENTATION: Yes oriented to person, Yes oriented to place and Yes oriented to time Data 03/16/24 21:45 03/16/24 21:45 Micro: Microbiology 03/17/24 10:25 Occult Blood (FIT) - Final Stool Routine Collection 03/17/24 10:25 Stool Lactoferrin - Final Stool - Stool Aspirate 03/16/24 21:19 Stool Lactoferrin - Final Stool Occult Blood (FIT) - Final A&P Assessment and plan (1) Hypertension: Qualifiers: Hypertension type: primary hypertension Qualified Code(s): I10 - Essential (primary) hypertension (2) History of FL (myocardial infarction): (3) Status post gastric bypass for obesity: (4) Colitis: (5) Intussusception of small bowel: (6) Diarrhea: Qualifiers: Diarrhea type: unspecified type Qualified Code(s): R19.7 - Diarrhea, unspecified (7) Abdominal pain: (8) DOUGIE (acute kidney injury): Plan #Colitis #Small bowel intussusception #History of bariatric surgery 18 years ago #Watery diarrhea #Dehydration #DOUGIE #0.4 cm low-density left adrenal nodule #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 Patient is having watery diarrhea for the last 2 days which is yellowish and green in color as per nursing staff. Patient is on chronic omeprazole she states she has been taking for years and years. No recent antibiotic use, Initial C. difficile test negative, I still have a high clinical suspicion therefore we will retest for C. difficile. ? Small bowel intussusception possibly transitory or may lead to complete obstruction. Continue to monitor. Serial abdominal exams, observe patient clinically. If she develops signs of obstruction we will need to do CT abdomen pelvis with oral contrast. ? Check stool for ova parasite, check bacterial stool culture ? Check for Giardia, Cryptosporidium pending ? Check lactoferrin ? Continue on ciprofloxacin, Flagyl ? Consult general surgery. ? Continue on normal saline 125 cc/h. ? Continue aspirin, atorvastatin, metoprolol. Hold lisinopril at this time. Hold other nephrotoxic agents. Home medications need to be confirmed. ? Left adrenal nodule?no follow-up necessary. -Baseline creatinine normal, creatinine today 1.3. Most likely secondary to dehydration. Continue IV fluids. I expect this to improve. ? Urinalysis pending Full code Due to prophylaxis: Heparin SQ twice daily Clear liquid diet Attestations 2 Medical Necessity Statement*: patient requires hospitalization for abdominal pain Diagnoses Primary hypertension I10 Hypertension type: primary hypertension History of FL (myocardial infarction) I25.2 Status post gastric bypass for obesity Z98.84 Colitis K52.9 Intussusception of small bowel K56.1 Diarrhea R19.7 Diarrhea type: unspecified type Abdominal pain R10.9 DOUGIE (acute kidney injury) N17.9
[2024-03-17 11:17] LABS: C.Diff PCR (Lab) NEGATIVE (Negative)
[2024-03-17] MEDS: nicotine 21 mg Patch 1 PATCH TRANSDERMA (13:43)
[2024-03-17] MEDS: acetaminophen 325 mg Tablet 650 MG PO ×2 (13:45→23:39)
[2024-03-17] MEDS: TRAMadol 50 mg Tablet 25 MG PO (18:32)
[2024-03-17] MEDS: atorvastatin 40 mg Tablet 80 MG PO (20:17)
[2024-03-18] VITALS: BP 123/79; PULSE 80; RESP 17; TEMP 36.7; O2SAT 96
[2024-03-18 04:00] VITALS: BP 126/81; PULSE 65; RESP 17; TEMP 36.3; O2SAT 96
[2024-03-18 05:08] LABS: Basophils # 0.1 10^3/uL (0.0-0.1); Basophils % 0.8 %; Eosinophils # 0.4 10^3/uL (0.0-0.8); Eosinophils % 5.9 %; Hematocrit 40.5 % (36-47); Lymphocytes # 2.2 10^3/uL (0.8-4.8); Lymphocytes % 33.5 %; Mean Corpuscular HGB Conc 30.4 g/dL (30-55); Mean Corpuscular Hemoglobin 29.1 pg (27-33); Mean Platelet Volume 8.9 fL (7.4-10.4); Monocytes # 0.6 10^3/uL (0.2-0.9); Monocytes % 9.2 %; Neutrophils # 3.33 10^3/uL (1.8-7.7); Neutrophils % 50.1 %; Nucleated Red Blood Cells % 0 %; Platelet Count 231 10^3/cmm (157-399); Red Blood Count 4.22 10^6/uL (3.85-5.65); Red Cell Distribution Width 15.3 % (12.1-15.1); White Blood Count 6.63 10^3/uL (3.29-11.43)
[2024-03-18] MEDS: metroNIDAZOLE IV 500 MG/100 ML PREMIX 100 MG IV (05:24)
[2024-03-18] MEDS: heparin 5,000 unit/mL INJ 1 mL 5000 UNIT SUBCUT (05:24)
[2024-03-18 05:27] LABS: Anion Gap 12.9 (5-19); Blood Urea Nitrogen 7 mg/dL (6-20); Carbon Dioxide 18 mmol/L (22-29); Chloride 113 mmol/L (98-107); Creatinine Clr Calc Pharmacy 108.9237; Glomerular Filtration Rate 104.2 mL/min (90-130); Glucose 96 mg/dL (65-115); Magnesium 1.7 mg/dL (1.7-2.3); Osmolality Calculated 288 mOsm/kg (285-295); Potassium 3.9 mmol/L (3.5-5.1); Sodium 140 mmol/L (136-145)
[2024-03-18] MEDS: acetaminophen 325 mg Tablet 650 MG PO (05:30)
[2024-03-18 08:00] VITALS: BP 129/78; PULSE 83; RESP 14; TEMP 36.6; O2SAT 94
[2024-03-18] MEDS: sodium chlor 0.9% + KCl 20 mEq 20 MEQ/1,000 ML BAG 125 MEQ IV (08:02)
[2024-03-18] MEDS: aspirin 81 mg EC Tablet PO (08:03)
[2024-03-18] MEDS: nicotine 21 mg Patch 1 PATCH TRANSDERMA (08:04)
[2024-03-18] MEDS: pantoprazole DR 40 mg Tablet PO (08:04)
--- NOTE | 2024-03-18 09:21 | P.PN_ITS ---
Subjective 2 Subjective: Patient evaluated this morning, doing well, no abdominal pain, still having diarrhea. No abdominal distention otherwise feeling well. Vitals/I&O/Wt Last Vital Signs Temp 97.8 F 03/18/24 08:00 Pulse 83 03/18/24 08:00 Resp 14 03/18/24 08:00 BP 129/78 03/18/24 08:00 Pulse Ox 94 03/18/24 08:00 O2 Del Method Room Air 03/18/24 08:00 03/17/24 03/18/24 03/18/24 22:59 06:59 14:59 Intake Total 940 / 2132.083 582.083 / 2714.166 1045 / 1045 Balance 940 / 2132.083 582.083 / 2714.166 1045 / 1045 Weight last 48 hrs Weight 181 lb 8 oz Weight 168 lb Weight 165 lb Physical Exam 2 GI: OTHER: Abdomen soft, nontender, nondistended. Data 03/18/24 04:33 03/18/24 04:33 Micro: Microbiology 03/17/24 10:25 Occult Blood (FIT) - Final Stool Routine Collection 03/17/24 10:25 Stool Lactoferrin - Final Stool - Stool Aspirate A&P Assessment and plan (1) Abdominal pain: (2) Status post gastric bypass for obesity: (3) Colitis: (4) Intussusception of small bowel: Plan 53-year-old female with history of gastric bypass who was admitted with colitis and had an incidental finding of a possible intussusception at the level of the JJ anastomosis. Patient is asymptomatic, does not have any obstructive symptoms. Colitis appears to be improving her white count is normal now and her abdominal pain has resolved. No additional intervention is suspected for the intussusception noted on CT scan. Recommendation will be for patient to follow- up with bariatric surgery as outpatient for possible additional workup and repeat imaging. Indicates of the patient developing obstructive symptoms repeat CT scan of the abdomen pelvis with p.o. contrast should be indicated and patient will likely require transfer to higher level of care, although this is unlikely at this point as patient is showing significant improvement. All other management per primary team Attestations 2 Medical Necessity Statement*: Per primary team Coding Level of Care Code Acute Code for Chg Fwd Diagnoses Abdominal pain R10.9 Status post gastric bypass for obesity Z98.84 Colitis K52.9 Intussusception of small bowel K56.1
--- NOTE | 2024-03-18 09:46 | PC.CHAP ---
Pastoral Care Encounter/Spiritual Assessment Type of Contact [x] Declined automation and control engineer visit [] Patient/Family/Request visit [] Outpatient visit [] Follow-up visit [] Physician referral [] Code/Alert [] Routine visit [] Staff referral [] Actively dying [] Patient sleeping [] Family support [] [] Out of room [] Palliative care [] [] Receiving care in room [] Pre-surgical visit [] Trauma [] Long length of stay [] ICU visit [] Other: Relational/Emotional Strength [] Patient feels connected with others/family/visitors/staff [] Distress [] Loneliness/isolation [] Abandonment Spirituality of Patient [] Person of Rhina [] Attends Yazidi of their Rhina [] Believes in Prayer [] Reads Bible or Mu-Ism materials [] There are Spiritual issues to be addressed Medical Researcher Interventions [] Prayer [] Active listening [] Non-anxious presence [] Spiritual/emotional support [] Crisis/trauma care [] Spiritual counseling [] Bereavement support [] Provided bereavement packet [] Provided Bible/devotional materials [] Provided toy/stuffed animal, coloring book to patient or family member [] Provided Communion [] Anointing/[place] [] Salvation [] Completed spiritual assessment [] Other: Impact on Illness or Injury [] Angry [] Fearful [] Anxious [] Often cries [] Exhaustion [] Unable to work [] Unable to attend adventism [] Unable to walk/stand [] Unable to read [] Unable to drive [] Unable to eat/drink [] Unable to sleep [] Unable to be with family [] Patient intubated [] Other: Summary Time spent with patient
--- NOTE | 2024-03-18 11:54 | P.DS_ITS ---
Discharge Providers Date of Admission: 03/17/24 05:39 Date of Discharge: March 18, 2024 Attending Provider at Admission: Eleanor Terry MD Attending Provider at Discharge: Alexsander Lowry MD Primary Care Provider: Kristen Mejia NP Diagnoses at Discharge Discharge Diagnosis (1) Abdominal pain: Status: Acute (2) Status post gastric bypass for obesity: Status: Acute (3) Colitis: Status: Acute (4) Intussusception of small bowel: Status: Acute Reason for Visit Reason for Visit: abd pain history of perforated ulcer Hospital Course Hospital Course Lia Mejia is a 53 year old female with past Medical history of hypertension, hyperlipidemia, coronary artery disease with 50% stenosis, bariatric surgery 18 years ago, history of RI, obesity presented to the hospital today with complaint of abdominal pain. She says this started 2 days ago and has been cramping and she has been having diarrhea. She is staying she is unable to keep anything down and anything she eats she ends up having diarrhea. She is going to the bathroom more than 10 times a day. He describes it completely watery and very dark color. Denies nausea vomiting. She denies any other complaints at this time. She states she has a history of gastric ulcer and came to the hospital thinking that was the cause of her symptoms. Denies history of kidney stones. Drinks filtered water. Denies drinking from a well. Denies eating canned foods or eating at a restaurant. ER course: 160/85 pulse rate 16, pulse 92, temperature 97.9, saturating 91% on room air. CT abdomen pelvis. 20 this showed possible small bowel intussusception to the level of gastric bypass anastomosis. White count 12, creatinine 1.3. Initially general surgery was consulted who recommended transfer to higher level of care with bariatric surgery capabilities. ER doctor discussed case with Dr. Figueroa bariatric surgeon at [facility] who reviewed images and recommended admission to [facility] for IV antibiotics to treat colitis and if patient develops signs of obstruction to obtain oral contrast CT and at that point reach out to [facility] for possible transfer. This was rediscussed with General surgery at [facility] who agreed to follow patient. Medicine to admit. Urinalysis shows 2+ ketones, 3+ blood, 25-40 RBCs, 0-4 WBCs, 1+ bacteria. Creatinine 1.3. Baseline creatinine normal. Initial C. difficile screen negative in ER. Patient was monitored as inpatient, for colitis, general surgery was consulted due to concern for possible intussusception , recommended medical management managed on broad-spectrum antibiotic therapy IV fluids, abdominal pain resolved, passing gas, diet was advanced, overall clinically improved. On discharge she will be discharged on antibiotic therapy for 5 days, tramadol for pain control, and instructions to drink electrolyte balanced fluids, slowly advance diet. General surgery recommended for patient to follow-up with general surgery for consideration of colonoscopy given her Hemoccult positive stools, given her history of gastric bypass, patient is to follow-up with tertiary level care for further intervention and follow-up. Patient was advised if she were to have any recurrent abdominal pain to go back to the emergency room, and if she did need any surgical intervention, or if she had recurrent findings concerning for intussusception she would need to be need transfer for higher level of care, Physical Exam Const: COMMON NORMALS: no acute distress and patient oriented x3 Resp: COMMON NORMALS: normal respiratory effort, No retractions, No use of accessory muscles and clear to auscultation bilaterally AUSCULTATION: clear to auscultation bilaterally Cardio: COMMON NORMALS: regular rate, regular rhythm, S1 normal heart sound present and S2 normal heart sound present RATE: regular rate RHYTHM: regular rhythm HEART SOUNDS: S1 normal heart sound present and S2 normal heart sound present GI: COMMON NORMALS: Normal to inspection, nondistended, normoactive bowel sounds present and non-tender Extremity: COMMON NORMALS: no pedal edema Neuro: COMMON NORMALS: patient oriented x3 Psych: COMMON NORMALS: mental status grossly normal Discharge Data Studies Completed and Pending Completed Studies During Hospitalization Category Date Time Status CT abdomen pelvis w con* [id number] Stat Cat Scan 03/17/24 01:50 Completed Pending at discharge Category Date Time Status Giardia and Cryptosporidium Ag Routine Lab 03/17/24 10:25 Received OVA and Parasites, Conc and PE Routine Lab 03/16/24 21:19 Received Salmonella / Shigella / Campy Routine Lab 03/16/24 21:19 Received Radiology Impressions Abdomen/Pelvis CT 03/17/24 01:50 IMPRESSION: 1. Colitis. 2. Postoperative changes status post gastric bypass procedure. There is a small bowel small bowel intussusception at the level of the small bowel suture line. 3. Please see above comments for additional details. 4. Small left adrenal nodule. No follow-up is necessary. (Reference: Shantel) References: Shantel CUELLO, et al. Management of Incidental Adrenal Masses: A White Paper of the ACR Incidental Findings Committee. J Am Harvey Radiol. 2017;14(8):6340-0131. ADDENDUM: 03/17/24 0432 COMMENT: THIS REPORT CONTAINS FINDINGS THAT MAY BE CRITICAL TO PATIENT CARE. The exam findings were verbally communicated by me to Checo Reinoso via telephone conference at 4:31 AM CDT on 03/17/2024. The findings were acknowledged and understood. Laboratory Results WBC 6.63 10^3/uL (3.29-11.43) 03/18/24 04:33 RBC 4.22 10^6/uL (3.85-5.65) 03/18/24 04:33 Hgb 12.30 g/dL (11.27-16.99) 03/18/24 04:33 Hct 40.5 % (36-47) 03/18/24 04:33 MCV 96.0 fl (85-98) 03/18/24 04:33 MCH 29.1 pg (27-33) 03/18/24 04:33 MCHC 30.4 g/dL (30-55) 03/18/24 04:33 RDW 15.3 % (12.1-15.1) H 03/18/24 04:33 Plt Count 231 10^3/cmm (157-399) 03/18/24 04:33 MPV 8.9 fL (7.4-10.4) 03/18/24 04:33 Neut % (Auto) 50.1 % 03/18/24 04:33 Lymph % (Auto) 33.5 % 03/18/24 04:33 [place] % (Auto) 9.2 % 03/18/24 04:33 Eos % (Auto) 5.9 % 03/18/24 04:33 Baso % (Auto) 0.8 % 03/18/24 04:33 Neut # (Auto) 3.33 10^3/uL (1.8-7.7) 03/18/24 04:33 Lymph # (Auto) 2.2 10^3/uL (0.8-4.8) 03/18/24 04:33 [place] # (Auto) 0.6 10^3/uL (0.2-0.9) 03/18/24 04:33 Eos # (Auto) 0.4 10^3/uL (0.0-0.8) 03/18/24 04:33 Baso # (Auto) 0.1 10^3/uL (0.0-0.1) 03/18/24 04:33 Nucleated RBC % (auto) 0 % 03/18/24 04:33 Nucleated RBCs # 0.0 /100WBC 03/18/24 04:33 Sodium 140 mmol/L (136-145) 03/18/24 04:33 Potassium 3.9 mmol/L (3.5-5.1) 03/18/24 04:33 Chloride 113 mmol/L (98-107) H 03/18/24 04:33 Carbon Dioxide 18 mmol/L (22-29) L 03/18/24 04:33 Anion Gap 12.9 (5-19) 03/18/24 04:33 BUN 7 mg/dL (6-20) 03/18/24 04:33 Creatinine 0.6 mg/dL (0.5-0.9) 03/18/24 04:33 GFR Calculation 104.2 mL/min (90-130) 03/18/24 04:33 Glucose 96 mg/dL (65-115) 03/18/24 04:33 Calculated Osmolality 288 mOsm/kg (285-295) 03/18/24 04:33 Lactic Acid 0.6 mmol/L (0.5-2.2) 03/17/24 06:05 Calcium 8.0 mg/dL (8.5-10.5) L 03/18/24 04:33 Magnesium 1.7 mg/dL (1.7-2.3) 03/18/24 04:33 Total Bilirubin 0.4 mg/dL (0.15-1.2) 03/16/24 21:45 AST 24 U/L (0-32) 03/16/24 21:45 ALT 13 U/L (0-33) 03/16/24 21:45 Alkaline Phosphatase 144 U/L (35-105) H 03/16/24 21:45 Total Protein 7.9 g/dL (6.6-8.7) 03/16/24 21:45 Albumin 4.1 g/dL (3.5-5.2) 03/16/24 21:45 Globulin 3.8 g/dL (1.3-4.6) 03/16/24 21:45 Lipase 13 U/L (13-60) 03/16/24 21:45 Vitamin B12 265 pg/mL (232-1245) 03/16/24 21:45 Procalcitonin 0.18 ng/mL (0-0.5) 03/16/24 21:45 TSH 1.02 uIU/mL (0.27-4.20) 03/16/24 21:45 Urine Color Yellow (Yellow) 03/17/24 00:05 Urine Appearance Slightly cloudy (CLEAR) 03/17/24 00:05 Urine pH 5 (5-7) 03/17/24 00:05 Ur Specific [place] 1.020 (1.005-1.030) 03/17/24 00:05 Urine Protein Trace (Negative) 03/17/24 00:05 Urine Glucose (UA) Norm (Normal) 03/17/24 00:05 Urine Ketones 2+ (Negative) H 03/17/24 00:05 Urine Blood 3+ (Negative) H 03/17/24 00:05 Urine Nitrate Negative (Negative) 03/17/24 00:05 Urine Bilirubin Neg (Negative) 03/17/24 00:05 Urine Urobilinogen Norm mg/dL (Negative) 03/17/24 00:05 Ur Leukocyte Esterase Negative (Negative) 03/17/24 00:05 Urine RBC 25-40 /hpf (0-2) H 03/17/24 00:05 Urine WBC 0-4 /hpf (0-5) H 03/17/24 00:05 Ur Squamous Epith Cells 15-25 /hpf (0-5) H 03/17/24 00:05 Amorphous Sediment Not Reportable 03/17/24 00:05 Urine Bacteria 1+ /hpf (NONE) H 03/17/24 00:05 Urine Mucus 1+ /hpf 03/17/24 00:05 C. difficile (PCR) Negative (Negative) 03/17/24 10:25 Vitals Last Vital Signs Temp 97.8 F 03/18/24 08:00 Pulse 83 03/18/24 08:00 Resp 14 03/18/24 08:00 BP 129/78 03/18/24 08:00 Pulse Ox 94 03/18/24 08:00 O2 Del Method Room Air 03/18/24 08:00 Discharge Plan Discharge Patient Disposition: Home Condition: Stable Prescriptions: New ciprofloxacin HCl 500 mg tablet 500 mg PO BID 5 Days Qty: 10 0RF metronidazole 500 mg tablet 500 mg PO Q8H 5 Days Qty: 15 0RF tramadol 50 mg tablet 25 mg PO Q8H PRN (Reason: pain) 4 Days Qty: 6 0RF Continued lisinopril 10 mg tablet 10 mg PO DAILY Qty: 90 3RF atorvastatin 80 mg tablet 80 mg PO DAILY sucralfate 1 gram tablet 1 g PO QID omeprazole 40 mg capsule,delayed release(DR/EC) 40 mg PO BID aspirin 81 mg Tablet,Delayed Release (Dr/Ec) 81 mg PO DAILY cyanocobalamin (vitamin B-12) 1,000 mcg/mL solution 1,000 mcg SUBCUT Q14D Rx Instructions: TAKE ON THURSDAY metoprolol tartrate 25 mg tablet 25 mg PO BID Discontinued tramadol 50 mg tablet 50 mg PO TID PRN (Reason: pain (scale score 7-10)) Qty: 7 0RF Discharge Orders: Discharge Order (Routine); Ordered 03/18/24 Ordered By: Alexsander Lowry Referrals: Kristen Mejia NP [Primary Care Provider] - 03/29/24 2:45 pm Discharge Diet: Advance as tolerated Discharge Activity: Resume usual activity Patient Instructions: Ciprofloxacin (By mouth) (Cipro), Metronidazole (By mouth) (Flagyl, Flagyl 375, Flagyl ER, Likmez), Tramadol (By mouth), Colitis (ED), GI (Gastrointestinal) Soft Diet (DC), Opioid Safety Stand Alone Forms: Work/School Release Discharge Attestations Time Spent in Discharge Care*: greater than 30 min Quality Metrics Clinical Quality Measures [ No reported AMI, CVA or VTE this stay] Coding Level of Care Code 58520 Total time (in minutes) for Discharge: 45 Diagnoses Abdominal pain R10.9 Status post gastric bypass for obesity Z98.84 Colitis K52.9 Intussusception of small bowel K56.1
[2024-03-18 11:58] VITALS: BP 159/88; PULSE 77; RESP 16; TEMP 36.6; O2SAT 98
[2024-03-18 13:39] VITALS: BP 159/88; PULSE 77; RESP 16; TEMP 36.6; O2SAT 98
--- NOTE | 2024-03-18 13:40 | PC.NURSE ---
Discharge Note Patient discharged to home via private vehicle accompanied by family member. Discharge instructions reviewed with patient and/or telemarketing representative. Medications delivered to patient. Questions answered. Work note provided. Belongings/home medications returned.
== END 2024-03-18 14:30 | disposition home or self-care (01) ==
LOC: ER 03-17 05:07 → MEDSURG 03-17 05:39
PROVIDERS: Admitting Provider Internal Medicine; Emergency Provider Emergency Medicine; PCP Nurse Practitioner Family; Visit Provider Family Medicine
DX: K56.1 Intussusception (principal); K52.9 Noninfective gastroenteritis and colitis, unspecified; Z98.84 Bariatric surgery status; I10 Essential (primary) hypertension; E78.5 Hyperlipidemia, unspecified; I25.10 Atherosclerotic heart disease of native coronary artery without angina pectoris; I25.2 Old myocardial infarction; E86.0 Dehydration; K21.9 Gastro-esophageal reflux disease without esophagitis; Z87.11 Personal history of peptic ulcer disease; Z79.82 Long term (current) use of aspirin; F17.210 Nicotine dependence, cigarettes, uncomplicated; N17.9 Acute kidney failure, unspecified
CPT/HCPCS: 36415; 74177; 80048; 80053; 81001; 82274; 82607; 83605; 83630; 83690; 83735; 84145; 84443; 85025; 87045; 87177; 87209; 87328; 87329; 87427; 87449; 87493; 96365; 96366; 96367; 96372; 96375; 99285; G0378; J0744; J1644; J2270; J3480; J3490; J7030; Q9967

== ENCOUNTER 2024-06-30 08:47 | Day surgery (SDC) | payer OTHER, SELFPAY ==
[2024-06-30 08:59] VITALS: BP 128/84; PULSE 93; RESP 18; TEMP 36.6; O2SAT 96; BMI 29.2
--- NOTE | 2024-06-30 09:02 | P.HPUD_ITS ---
Surgery/Procedure H&P Update DATE OF PROCEDURE: June 30, 2024 DATE H&P PERFORMED: 06/08/24 H&P UPDATE INFORMATION: I have reviewed H&P completed within last 30 days, I have examined patient prior to procedure, No changes to prior documentation and [place] [facility] [place] date indicated PLANNED PROCEDURE: Operation Date: 06/30/24 09:55 Proposed Procedures p Colonoscopy / 14176, g0121, z12.11(Not Applicable) - Rob Crawford MD
--- NOTE | 2024-06-30 09:02 | W.PM.OPSUD ---
Surgery/Procedure H&P Update DATE OF PROCEDURE: June 30, 2024 DATE H&P PERFORMED: 06/08/24 H&P UPDATE INFORMATION: I have reviewed H&P completed within last 30 days, I have examined patient prior to procedure, No changes to prior documentation and [place] [facility] [place] indicated PLANNED PROCEDURE: Operation Date: 06/30/24 09:55 Proposed Procedures p Colonoscopy / 24599, g0121, z12.11(Not Applicable) - Rob Crawford MD
[2024-06-30] MEDS: sodium chloride 0.9% 1,000 ML 30 ML IV (09:05)
--- NOTE | 2024-06-30 09:41 | ANES.PREANE2 ---
Pre-Anesthetic Assessment Height/Weight: Height 1.6 m Weight 74.843 kg Temp Pulse Resp BP Pulse Ox O2 Del Method 98 F 93 18 128/84 96 Room Air 06/30/24 08:59 06/30/24 08:59 06/30/24 08:59 06/30/24 08:59 06/30/24 08:59 06/30/24 08:59 Preop Diagnosis: diverticulitis Operation Date: 06/30/24 09:55 Proposed Procedures p Colonoscopy / 02925, g0121, z12.11(Not Applicable) - Rob Crawford MD Familial anesthetic complications: none Was Beta Marcus taken within 24 hours: N/A Was Clonidine taken within 24 hours: N/A Last intake: Intake Last Liquid Date 06/29/24 Last Liquid Time 23:00 Last Solid Date 06/29/24 Last Solid Time 06:30 Social Alcohol and Tobacco 1/2 PPD pack(s) per day Exam alert, oriented x 3, clear to auscultation bilaterally and regular rate & rhythm Airway Submandibular: within normal limits Mallampati: Class II Dentition: false History/ROS No significant history except as noted Pulmonary None reported Lower lobe surgery CV/HEM Hypertension None reported Hepatic None reported GI None reported Metabolic None reported Musc/skel Lower Back Pain Neuropsych None reported Anesthetic Plan ASA status: 3 Anesthesia: MAC Risk of > 500 ml blood loss (7ml/kg in children): No Medications/Allergies Home Medications Medication Instructions Recorded Confirmed Last Taken Type aspirin 81 mg tablet,delayed 81 mg PO DAILY 05/30/21 06/28/24 06/29/24 History release atorvastatin 80 mg tablet 80 mg PO DAILY 05/30/21 06/28/24 06/29/24 History cyanocobalamin (vitamin B-12) 1,000 mcg SUBCUT Q14D 05/30/21 06/28/24 06/29/24 History 1,000 mcg/mL injection solution metoprolol tartrate 25 mg tablet 25 mg PO BID 05/30/21 06/28/24 06/29/24 History omeprazole 40 mg capsule,delayed 40 mg PO BID 05/30/21 06/28/24 06/29/24 History release sucralfate 1 gram tablet 1 g PO QID 05/30/21 06/28/24 06/29/24 History budesonide 160 mcg-glycopyr 9 2 inh inhalation BID 06/07/24 06/28/24 06/29/24 History mcg-formot 4.8 mcg/actuation HFA inhaler (Breztri Aerosphere) escitalopram oxalate 5 mg tablet 5 mg PO DAILY 06/07/24 06/28/24 06/29/24 History gabapentin 300 mg capsule 300 mg PO .hs 06/07/24 06/28/24 06/29/24 History lisinopril 20 mg tablet 20 mg PO DAILY #90 tabs 06/07/24 06/28/24 06/29/24 Rx tramadol 50 mg tablet 50 mg PO BID PRN Pain 06/07/24 06/28/24 06/28/24 History Allergies Allergy/AdvReac Type Severity Reaction Status Date / Time Influenza Virus Vaccines Allergy rash Verified 06/10/24 11:41 NSAIDS (Non-Steroidal Allergy ALGY-Anaphy Verified 06/10/24 11:41 Anti-Inflamma laxis Current Medications Generic Name Dose Route Start Last Admin Trade Name Freq PRN Reason Stop Dose Admin Sodium Chloride 1,000 mls @ 30 mls/hr 06/30/24 09:00 06/30/24 09:05 Sodium Chloride 0.9% IV 30 mls/hr .Q24H ARANZA Administration PFSH Anesthesia Medical History Tobacco use Hyperlipidemia Hypertension Myocardial infarction Chest pain Surgical History Hx of colonoscopy 4 yrs ago History of cholecystectomy Hx of external ear surgery tubes Hx of tonsillectomy Hx of tubal ligation Hx of knee surgery bilateral 2 on both knees History of Benson-en-Y gastric bypass Family History Denies family history of Anesthesia complication Bleeding disorder Social History Smoking and tobacco/nicotine status: current every day tobacco/nicotine user (0.5 ppd) cigarettes Packs smoked per day: 0.5 Alcohol intake: current Alcohol intake frequency: 3 or more drinks per day Alcohol type: hard liquor Substance/Drug Use: former Lives independently: Yes Household members: spouse Data Anesthesia Cardiac Studies: Stress Echocardiogram 07/14/23
[2024-06-30 10:28] VITALS: BP 107/65; PULSE 65; RESP 18; TEMP 36.3; O2SAT 93
[2024-06-30 10:38] VITALS: BP 113/75; PULSE 71; RESP 18; O2SAT 97
[2024-06-30 10:48] VITALS: BP 110/75; PULSE 67; RESP 18; O2SAT 95
--- NOTE | 2024-06-30 11:29 | ANE.PACU2 ---
Inpatient post-anesthesia follow up: Airway intact: Yes Vital signs: Temperature 97.3 F Pulse Rate 67 Respiratory Rate 18 Blood Pressure 110/75 Pulse Oximetry 95 Oxygen Delivery Me thod Room Air Oxygen Flow Rate Fraction of Inspir ed Oxygen Hydration adequate: Yes Nausea and vomiting: No Pain level: 1 Mental status: Baseline
== END 2024-06-30 11:29 | disposition home or self-care (01) ==
PROVIDERS: PCP Nurse Practitioner Family; Visit Provider Surgery
PROC: 0DJD8ZZ Inspection of Lower Intestinal Tract, Via Natural or Artificial Opening Endoscopic (ICD-10-PCS; CPT 45378; principal; 2024-06-30 09:55)
DX: Z12.11 Encounter for screening for malignant neoplasm of colon (principal); D12.4 Benign neoplasm of descending colon; D12.5 Benign neoplasm of sigmoid colon; F17.200 Nicotine dependence, unspecified, uncomplicated; I10 Essential (primary) hypertension; Z79.82 Long term (current) use of aspirin; E78.5 Hyperlipidemia, unspecified; I25.2 Old myocardial infarction; Z98.84 Bariatric surgery status; F17.210 Nicotine dependence, cigarettes, uncomplicated
CPT/HCPCS: 45380; 45385; 88305; J2704; J7030

== ENCOUNTER 2024-09-29 12:41 | Outpatient (CLI) | payer OTHER, SELFPAY ==
--- NOTE | 2024-09-29 12:40 | MM_ITS ---
WS: [id number] BILATERAL SCREENING DIGITAL TOMOSYNTHESIS MAMMOGRAM WITH CAD HISTORY: SCREENING COMPARISON: 04/30/2022, 04/26/2018 Bilateral CC and MLO views with tomosynthesis and synthetic mammography submitted. Computer aided det ection analyzed. Breast composition: There are scattered areas of fibroglandular density. No suspicious masses, microc alcifications or architectural distortion. Small cluster of calcifications central posterior LEFT jessica ast are stable over multiple prior years. MM/MM scr BI tomosynthesis [id number] IMPRESSION: BI-RADS: 2 - Benign. FOLLOW UP: 1 Year Follow-up
== END 2024-09-29 12:42 | disposition home or self-care (01) ==
LOC: MOBLMAM 12:45
PROVIDERS: PCP Nurse Practitioner Family; Visit Provider Nurse Practitioner Family
DX: Z12.31 Encounter for screening mammogram for malignant neoplasm of breast (principal); R92.323 Mammographic fibroglandular density, bilateral breasts; R92.1 Mammographic calcification found on diagnostic imaging of breast
CPT/HCPCS: 77063; 77067